=== PATIENT | female | born 1960 | race Two or more races ===

== ENCOUNTER 2022-10-14 08:18 | Inpatient (IN) | payer MEDICAID, OTHER ==
[~2022-10-14] VITALS: Ht 170.2 cm; Wt 71.5 kg
[2022-10-14] MEDS ORDERED: HYDROmorphone HCL 2 MG/ML VL/or syr IV ONE ×2 (09:00→10:45)
[2022-10-14] MEDS ORDERED: ONDANSETRON HCL 4 MG/2 ML VIAL IV ONE (09:00)
[2022-10-14] MEDS ORDERED: SODIUM CHLORIDE 0.9% 1,000 ML IV ONE (09:00)
[2022-10-14 09:18] LABS: Basophils # (auto) 0.1 10 ^3/uL (0-0.2); Basophils % (auto) 0.9 % (0.0-2.0); Eosinophils # (auto) 0.1 10 ^3/uL (0-0.8); Eosinophils % (auto) 0.9 % (0.0-7.0); Hematocrit 41.8 % (36.0-46.0); Lymphocytes # (auto) 1.6 10 ^3/uL (0.4-5.4); Lymphocytes % (auto) 13.8 % (10.0-50.0); Mean Corpuscular Hemoglobin 30.8 pg (28.0-32.0); Mean Corpuscular Hgb Conc. 33.5 g/dL (32.0-36.0); Mean Corpuscular Volume 91.8 fL (80.0-100.0); Monocytes # (auto) 0.6 10 ^3/uL (0-1.3); Monocytes % (auto) 5.1 % (0.0-12.0); Neutrophils # (auto) 9.2 10 ^3/uL (1.6-8.6); Neutrophils % (auto) 79.3 % (37.0-80.0); Nucleated Red Blood Cells % 0.1 %; Red Blood Cells 4.56 10^6/uL (4.0-5.20); Red Cell Distribution Width 13.3 % (11.8-14.3); White Blood Cell 11.6 10^3/uL (4.4-10.8)
[2022-10-14 09:32] LABS: Albumin 3.7 g/dL (3.4-5.0); Potassium 3.9 mmol/L (3.5-5.1)
[2022-10-14 09:36] LABS: BUN/Creatinine Ratio 17.2 (10.0-20.0); Bilirubin, Total 0.4 mg/dL (0.2-1.0); Calcium 9.1 mg/dL (8.5-10.1); Total Protein 7.2 g/dL (6.4-8.2)
[2022-10-14] MEDS ORDERED: IOHEXOL 300 MG/ML 100ML BOTTLE IJ ONE (09:44)
[2022-10-14] MEDS ORDERED: MORPHINE SULFATE INJ 2 MG/ml SYRG IV ONE ×2 (09:45→17:30)
[2022-10-14] MEDS ORDERED: DOCUSATE SOD 100 MG CAP PO PRN (13:00)
[2022-10-14 14:30] LABS: Urine Bacteria NONE SEEN /hpf (None Seen); Urine Blood Negative /uL (Negative); Urine Specific Gravity 1.049 (1.001-1.035); Urine WBC <1 /hpf (0 - 5)
[2022-10-14] MEDS: SODIUM CHLORIDE 0.9% 1,000 ML IV SCH ×2 (14:30→21:20)
[2022-10-14] MEDS ORDERED: DEXTROSE (50%) 50ML SYRG IV PRN (14:30)
[2022-10-14] MEDS: metroNIDAZOLE 500MG/100ML 100 ML IV SCH ×2 (14:31→21:27)
[2022-10-14] MEDS: MORPHINE SULFATE INJ 2 MG/ml SYRG IV PRN ×3 (14:39→23:27)
[2022-10-14 14:41] LABS: Alcohol, Urine < 3.0 mg/dL (0-10); Amphetamine Screen, Urine POSITIVE (NEGATIVE); Barbiturate Scree,Urine NEGATIVE (NEGATIVE); Benzodiazephine Screen, Urine NEGATIVE (NEGATIVE); Cannabinoid Screen, Urine POSITIVE (NEGATIVE)
[2022-10-14 14:49] LABS: Cocaine Screen, Urine NEGATIVE (NEGATIVE); Opiate Scree,Urine NEGATIVE (NEGATIVE); Phencyclidine Screen, Urine NEGATIVE (NEGATIVE)
[2022-10-14] MEDS: hydrALAZINE HCL 20 MG/ML VL IV SCH (16:13)
[2022-10-14] MEDS ORDERED: DICYCLOMINE HCL (10MG/ML) 2 ML AMPULE IM ONE (17:30)
[2022-10-14] MEDS: ACCU-CHEK COMFORT CURVE STRIP VI SCH (17:57)
[2022-10-14] MEDS: InsuLIN REG 1unit/0.01ml Soln (100units/ml) SC SCH (18:03)
[2022-10-14] MEDS ORDERED: KETOROLAC TROMETH 30 MG/ML 1ML VIAL IV ONE (19:00)
[2022-10-14] MEDS: ONDANSETRON HCL 4 MG/2 ML VIAL IV PRN (23:05)
[2022-10-15] MEDS: hydrALAZINE HCL 20 MG/ML VL IV SCH ×3 (00:40→12:07)
[2022-10-15] MEDS: ACCU-CHEK COMFORT CURVE STRIP VI SCH ×5 (00:47→23:15)
[2022-10-15] MEDS: InsuLIN REG 1unit/0.01ml Soln (100units/ml) SC SCH ×5 (00:49→23:16)
[2022-10-15 06:00] LABS: Potassium 3.5 mmol/L (3.5-5.1)
[2022-10-15 06:07] LABS: Basophils # (auto) 0 10 ^3/uL (0-0.2); Basophils % (auto) 0.1 % (0.0-2.0); Eosinophils # (auto) 0 10 ^3/uL (0-0.8); Hematocrit 45.7 % (36.0-46.0); Hemoglobin 15.5 g/dL (12.2-16.2); Lymphocytes # (auto) 0.4 10 ^3/uL (0.4-5.4); Mean Corpuscular Hgb Conc. 33.8 g/dL (32.0-36.0); Mean Corpuscular Volume 91.5 fL (80.0-100.0); Monocytes % (auto) 7.2 % (0.0-12.0); Neutrophils # (auto) 12.8 10 ^3/uL (1.6-8.6); Neutrophils % (auto) 89.7 % (37.0-80.0); Red Blood Cells 4.99 10^6/uL (4.0-5.20); Red Cell Distribution Width 13.4 % (11.8-14.3); White Blood Cell 14.3 10^3/uL (4.4-10.8)
[2022-10-15] MEDS: metroNIDAZOLE 500MG/100ML 100 ML IV SCH ×3 (06:18→22:45)
[2022-10-15] MEDS: SODIUM CHLORIDE 0.9% 1,000 ML IV SCH ×3 (06:30→18:30)
[2022-10-15] MEDS: MORPHINE SULFATE INJ 2 MG/ml SYRG IV PRN ×2 (07:05→20:04)
[2022-10-15 07:50] LABS: Total Protein 7.1 g/dL (6.4-8.2)
[2022-10-15 08:27] LABS: Albumin 3.4 g/dL (3.4-5.0); BUN/Creatinine Ratio 18.8 (10.0-20.0); Calcium 9.2 mg/dL (8.5-10.1)
[2022-10-15] MEDS: cefTRIAXone 1GM/50ML D5W 50 ML IV SCH (09:02)
[2022-10-15] MEDS ORDERED: LORazepam 2MG/ML-1ML VIAL IM PRN (10:00)
[2022-10-15] MEDS: ENOXAPARIN SOD 40 MG/0.4 ML SYRINGE SC SCH (10:00)
[2022-10-15] MEDS: PANTOPRAZOLE 40 MG/10 ML VIAL INJ IV SCH (10:57)
[2022-10-15] MEDS: hydrALAZINE HCL 20 MG/ML VL IV PRN ×2 (18:55→23:17)
[2022-10-15] MEDS: ONDANSETRON HCL 4 MG/2 ML VIAL IV PRN (20:02)
[2022-10-15 22:00] VITALS: BP 166/74
[2022-10-16 05:00] VITALS: BP 147/93
[2022-10-16 05:42] LABS: Basophils # (auto) 0 10 ^3/uL (0-0.2); Basophils % (auto) 0.1 % (0.0-2.0); Eosinophils # (auto) 0 10 ^3/uL (0-0.8); Hemoglobin 14.2 g/dL (12.2-16.2); Lymphocytes # (auto) 0.5 10 ^3/uL (0.4-5.4); Lymphocytes % (auto) 3.6 % (10.0-50.0); Mean Corpuscular Hemoglobin 30.7 pg (28.0-32.0); Mean Corpuscular Hgb Conc. 33.9 g/dL (32.0-36.0); Mean Corpuscular Volume 90.6 fL (80.0-100.0); Monocytes # (auto) 1.8 10 ^3/uL (0-1.3); Monocytes % (auto) 12.7 % (0.0-12.0); Neutrophils % (auto) 83.6 % (37.0-80.0); Red Blood Cells 4.64 10^6/uL (4.0-5.20); Red Cell Distribution Width 13.6 % (11.8-14.3); White Blood Cell 14.3 10^3/uL (4.4-10.8)
[2022-10-16 05:56] LABS: Potassium 3.5 mmol/L (3.5-5.1)
[2022-10-16 06:07] LABS: Albumin 2.9 g/dL (3.4-5.0); BUN/Creatinine Ratio 22.6 (10.0-20.0); Bilirubin, Total 0.8 mg/dL (0.2-1.0); Calcium 9.2 mg/dL (8.5-10.1); Total Protein 6.4 g/dL (6.4-8.2)
[2022-10-16] MEDS: ACCU-CHEK COMFORT CURVE STRIP VI SCH ×3 (06:07→17:23)
[2022-10-16] MEDS: metroNIDAZOLE 500MG/100ML 100 ML IV SCH ×3 (06:08→22:45)
[2022-10-16] MEDS: InsuLIN REG 1unit/0.01ml Soln (100units/ml) SC SCH ×3 (06:19→18:00)
[2022-10-16] MEDS: SODIUM CHLORIDE 0.9% 1,000 ML IV SCH ×3 (06:37→23:20)
[2022-10-16 09:00] VITALS: BP 157/100
[2022-10-16] MEDS: cefTRIAXone 1GM/50ML D5W 50 ML IV SCH (10:30)
[2022-10-16] MEDS: ENOXAPARIN SOD 40 MG/0.4 ML SYRINGE SC SCH (10:30)
[2022-10-16] MEDS: PANTOPRAZOLE 40 MG/10 ML VIAL INJ IV SCH (10:30)
[2022-10-16 13:22] VITALS: BP 167/99
[2022-10-16] MEDS: hydrALAZINE HCL 20 MG/ML VL IV PRN (15:06)
[2022-10-16] MEDS: MORPHINE SULFATE INJ 2 MG/ml SYRG IV PRN (15:06)
[2022-10-16] MEDS: ONDANSETRON HCL 4 MG/2 ML VIAL IV PRN (15:07)
[2022-10-16 17:15] VITALS: BP 152/98
[2022-10-16 22:00] VITALS: BP 147/76
[2022-10-17] MEDS: ACCU-CHEK COMFORT CURVE STRIP VI SCH ×5 (00:12→23:44)
[2022-10-17 05:00] VITALS: BP 159/91
[2022-10-17] MEDS: metroNIDAZOLE 500MG/100ML 100 ML IV SCH ×3 (05:39→22:27)
[2022-10-17] MEDS: hydrALAZINE HCL 20 MG/ML VL IV PRN ×2 (05:40→17:10)
[2022-10-17] MEDS: InsuLIN REG 1unit/0.01ml Soln (100units/ml) SC SCH ×5 (05:41→23:46)
[2022-10-17] MEDS: SODIUM CHLORIDE 0.9% 1,000 ML IV SCH ×2 (07:40→15:45)
[2022-10-17] MEDS: cefTRIAXone 1GM/50ML D5W 50 ML IV SCH (08:50)
[2022-10-17 09:10] VITALS: BP 152/74
[2022-10-17] MEDS: PANTOPRAZOLE 40 MG/10 ML VIAL INJ IV SCH (09:31)
[2022-10-17] MEDS: MORPHINE SULFATE INJ 2 MG/ml SYRG IV PRN (10:20)
[2022-10-17] MEDS: ENOXAPARIN SOD 40 MG/0.4 ML SYRINGE SC SCH (10:20)
[2022-10-17 12:31] VITALS: BP 147/78
[2022-10-17] MEDS ORDERED: GASTROGRAFIN 120 ML SOL ONE (13:31)
[2022-10-17] MEDS: LORazepam 2MG/ML-1ML VIAL IV PRN ×2 (15:43→23:57)
[2022-10-17 16:35] VITALS: BP 177/98
[2022-10-17 22:00] VITALS: BP 149/78
[2022-10-18] MEDS: SODIUM CHLORIDE 0.9% 1,000 ML IV SCH ×3 (00:20→17:46)
[2022-10-18 05:00] VITALS: BP 151/85
[2022-10-18] MEDS: ACCU-CHEK COMFORT CURVE STRIP VI SCH ×4 (05:44→23:45)
[2022-10-18] MEDS: hydrALAZINE HCL 20 MG/ML VL IV PRN ×3 (05:44→22:20)
[2022-10-18] MEDS: metroNIDAZOLE 500MG/100ML 100 ML IV SCH ×3 (05:44→22:10)
[2022-10-18] MEDS: InsuLIN REG 1unit/0.01ml Soln (100units/ml) SC SCH ×4 (05:45→23:46)
[2022-10-18 06:07] LABS: BUN/Creatinine Ratio 32.6 (10.0-20.0); Calcium 8.6 mg/dL (8.5-10.1); Magnesium 2.3 mg/dL (1.6-2.6)
[2022-10-18 06:10] LABS: Hematocrit 40.2 % (36.0-46.0); Hemoglobin 13.4 g/dL (12.2-16.2); Mean Corpuscular Hemoglobin 30.1 pg (28.0-32.0); Mean Corpuscular Hgb Conc. 33.5 g/dL (32.0-36.0); Mean Corpuscular Volume 89.9 fL (80.0-100.0); Red Blood Cells 4.47 10^6/uL (4.0-5.20); Red Cell Distribution Width 13.7 % (11.8-14.3)
[2022-10-18 06:55] LABS: Basophils % (manual) 0 (0.0-2.0); Blast Cells 0; Eosinophils % (manual) 0 (0-7); Metamyelocytes % 0; Myelocytes % 0; Promyelocytes % 0; Reactive Lymphocytes 0
[2022-10-18 08:30] VITALS: BP 164/93
[2022-10-18 09:31] LABS: Band Neutrophils % (manual) 12; Lymphocytes % (manual) 3 (10.0-50.0); Monocytes % (manual) 10 (0-12)
[2022-10-18] MEDS: PANTOPRAZOLE 40 MG/10 ML VIAL INJ IV SCH (09:46)
[2022-10-18] MEDS: ENOXAPARIN SOD 40 MG/0.4 ML SYRINGE SC SCH (09:46)
[2022-10-18] MEDS: cefTRIAXone 1GM/50ML D5W 50 ML IV SCH (09:46)
[2022-10-18 12:55] VITALS: BP 141/76
[2022-10-18 17:00] VITALS: BP 166/94
[2022-10-18 22:00] VITALS: BP 171/91
[2022-10-18] MEDS: LORazepam 2MG/ML-1ML VIAL IV PRN (22:36)
[2022-10-19] MEDS: SODIUM CHLORIDE 0.9% 1,000 ML IV SCH (01:20)
[2022-10-19 05:00] VITALS: BP 150/73
[2022-10-19] MEDS: InsuLIN REG 1unit/0.01ml Soln (100units/ml) SC SCH ×3 (06:00→18:18)
[2022-10-19] MEDS: metroNIDAZOLE 500MG/100ML 100 ML IV SCH ×3 (06:07→22:00)
[2022-10-19 06:15] LABS: Hematocrit 38.7 % (36.0-46.0); Hemoglobin 13.1 g/dL (12.2-16.2); Mean Corpuscular Hemoglobin 30.3 pg (28.0-32.0); Mean Corpuscular Hgb Conc. 33.9 g/dL (32.0-36.0); Mean Corpuscular Volume 89.5 fL (80.0-100.0); Red Blood Cells 4.33 10^6/uL (4.0-5.20); Red Cell Distribution Width 13.8 % (11.8-14.3); White Blood Cell 17.8 10^3/uL (4.4-10.8)
[2022-10-19] MEDS: ACCU-CHEK COMFORT CURVE STRIP VI SCH ×3 (06:17→17:56)
[2022-10-19 06:22] LABS: Basophils % (manual) 0 (0.0-2.0); Blast Cells 0; Eosinophils % (manual) 0 (0-7); Metamyelocytes % 0; Myelocytes % 0; Promyelocytes % 0; Reactive Lymphocytes 0
[2022-10-19 06:33] LABS: BUN/Creatinine Ratio 41.7 (10.0-20.0); Calcium 7.8 mg/dL (8.5-10.1); Magnesium 2.2 mg/dL (1.6-2.6)
[2022-10-19 06:51] LABS: Band Neutrophils % (manual) 22; Lymphocytes % (manual) 7 (10.0-50.0); Monocytes % (manual) 2 (0-12)
[2022-10-19 07:22] LABS: Potassium 2.9 mmol/L (3.5-5.1)
[2022-10-19 08:30] VITALS: BP 144/81
[2022-10-19] MEDS: cefTRIAXone 1GM/50ML D5W 50 ML IV SCH (10:30)
[2022-10-19] MEDS: POTASSIUM CHL 20MEQ/100ML 100 ML IV SCH ×2 (10:30→17:55)
[2022-10-19] MEDS: ENOXAPARIN SOD 40 MG/0.4 ML SYRINGE SC SCH (10:31)
[2022-10-19] MEDS: D5W/SOD CHL 0.45%/KCL 20MEQ 1,000 ML IV SCH ×2 (10:31→19:15)
[2022-10-19] MEDS: PANTOPRAZOLE 40 MG/10 ML VIAL INJ IV SCH (10:31)
[2022-10-19 13:00] VITALS: BP 173/87
[2022-10-19] MEDS ORDERED: FLEET MINERAL OIL ENEMA 133 ML PR ONE (15:00)
[2022-10-19 17:00] VITALS: BP 161/77
[2022-10-19] MEDS: LORazepam 2MG/ML-1ML VIAL IV PRN (17:57)
[2022-10-19 22:00] VITALS: BP 140/63
[2022-10-20] MEDS: ACCU-CHEK COMFORT CURVE STRIP VI SCH ×4 (00:07→18:00)
[2022-10-20] MEDS: InsuLIN REG 1unit/0.01ml Soln (100units/ml) SC SCH ×4 (00:14→18:00)
[2022-10-20] MEDS: MORPHINE SULFATE INJ 2 MG/ml SYRG IV PRN ×3 (03:58→18:20)
[2022-10-20 05:00] VITALS: BP 121/89
[2022-10-20] MEDS: D5W/SOD CHL 0.45%/KCL 20MEQ 1,000 ML IV SCH ×2 (05:15→09:51)
[2022-10-20] MEDS: metroNIDAZOLE 500MG/100ML 100 ML IV SCH ×3 (06:10→21:51)
[2022-10-20] MEDS: ENOXAPARIN SOD 40 MG/0.4 ML SYRINGE SC SCH (08:30)
[2022-10-20 08:46] LABS: INR 1.21 (0.9-1.15); Partial Thromboplastin Time 27.9 sec (24.6-33.4)
[2022-10-20 08:50] VITALS: BP 154/85
[2022-10-20] MEDS: PANTOPRAZOLE 40 MG/10 ML VIAL INJ IV SCH (09:21)
[2022-10-20] MEDS: cefTRIAXone 1GM/50ML D5W 50 ML IV SCH (09:21)
[2022-10-20] MEDS: hydrALAZINE HCL 20 MG/ML VL IV PRN (09:32)
[2022-10-20] MEDS: ONDANSETRON HCL 4 MG/2 ML VIAL IV PRN ×2 (09:33→18:18)
[2022-10-20] MEDS ORDERED: LIDOCAINE 1% HCL (LOCAL ANESTH.) INJ 20ML MDV ONE (10:18)
[2022-10-20] MEDS ORDERED: METOCLOPRAMIDE HCL 5MG/ml INJ 2ml VIAL IV PRN (10:30)
[2022-10-20] MEDS ORDERED: ACCU-CHEK COMFORT CURVE STRIP VI ONE (10:30)
[2022-10-20] MEDS ORDERED: MORPHINE SULFATE INJ 2 MG/ml SYRG IV PRN (10:30)
[2022-10-20] MEDS ORDERED: HYDROmorphone HCL 2 MG/ML VL/or syr IV PRN ×2 (10:30)
[2022-10-20] MEDS ORDERED: SUCCINYLCHOLINE CHLORIDE 20 MG/ML 10ML VIAL IV ONE (10:48)
[2022-10-20] MEDS ORDERED: ROCURONIUM 10MG/ML 10ML VIAL IV ONE (10:48)
[2022-10-20 10:55] LABS: Urine Bacteria NONE SEEN /hpf (None Seen); Urine Blood Negative /uL (Negative); Urine Mucus FEW (None Seen); Urine Specific Gravity 1.021 (1.001-1.035); Urine WBC 1 /hpf (0 - 5)
[2022-10-20] MEDS ORDERED: SODIUM CHLORIDE LOCK 10 ML ONE (11:14)
[2022-10-20] MEDS ORDERED: ONDANSETRON HCL 4 MG/2 ML VIAL ONE (11:14)
[2022-10-20] MEDS ORDERED: DexAMETHasone SOD PHOS 10MG/1ML VIAL INJ ONE (11:14)
[2022-10-20] MEDS ORDERED: GLYCOPYRROLATE 0.2 MG/ML 1ML VIAL ONE (11:14)
[2022-10-20] MEDS ORDERED: NEOSTIGMINE 1 MG/ML INJ (10mg/10ML VIAL) ONE (11:14)
[2022-10-20] MEDS ORDERED: MIDAZOLAM HCL 2MG/2ML 2ml VIAL (1mg/ml) ONE (11:14)
[2022-10-20] MEDS ORDERED: PROPOFOL 10 MG/ML 20 ML IV ONE (11:14)
[2022-10-20] MEDS ORDERED: fentaNYL CITRATE 100 MCG/2 ML VL ONE (11:14)
[2022-10-20] MEDS ORDERED: HYDROmorphone HCL 2 MG/ML VL/or syr ONE ×2 (11:36→13:50)
[2022-10-20] MEDS ORDERED: POTASSIUM CHL 20MEQ/100ML 100 ML IV ONE (12:11)
[2022-10-20] MEDS: POTASSIUM CHL 20MEQ/100ML 100 ML IV SCH (12:23)
[2022-10-20] MEDS ORDERED: POVIDONE IODINE 10 % TOPICAL OINT 30GM TOP ONE (12:58)
[2022-10-20 16:20] VITALS: BP 137/81
[2022-10-20 22:00] VITALS: BP 140/83
[2022-10-21] MEDS: D5W/SOD CHL 0.45%/KCL 20MEQ 1,000 ML IV SCH ×3 (01:15→22:18)
[2022-10-21] MEDS: MORPHINE SULFATE INJ 2 MG/ml SYRG IV PRN ×4 (04:16→17:43)
[2022-10-21 05:00] VITALS: BP 164/80
[2022-10-21] MEDS: hydrALAZINE HCL 20 MG/ML VL IV PRN (05:30)
[2022-10-21] MEDS: metroNIDAZOLE 500MG/100ML 100 ML IV SCH ×3 (05:57→21:59)
[2022-10-21] MEDS: ACCU-CHEK COMFORT CURVE STRIP VI SCH ×5 (05:57→23:52)
[2022-10-21] MEDS: InsuLIN REG 1unit/0.01ml Soln (100units/ml) SC SCH ×5 (06:00→23:51)
[2022-10-21 06:15] LABS: Hematocrit 36.7 % (36.0-46.0); Hemoglobin 12.5 g/dL (12.2-16.2); Mean Corpuscular Hemoglobin 30.3 pg (28.0-32.0); Mean Corpuscular Hgb Conc. 34.1 g/dL (32.0-36.0); Mean Corpuscular Volume 88.8 fL (80.0-100.0); Red Blood Cells 4.13 10^6/uL (4.0-5.20); Red Cell Distribution Width 13.7 % (11.8-14.3); White Blood Cell 22.5 10^3/uL (4.4-10.8)
[2022-10-21 06:37] LABS: Albumin 2.1 g/dL (3.4-5.0); Magnesium 1.8 mg/dL (1.6-2.6); Potassium 4.1 mmol/L (3.5-5.1)
[2022-10-21 06:43] LABS: Bilirubin, Total 0.4 mg/dL (0.2-1.0); Calcium 8.2 mg/dL (8.5-10.1); Total Protein 5.1 g/dL (6.4-8.2)
[2022-10-21 06:46] LABS: Basophils % (manual) 0 (0.0-2.0); Blast Cells 0; Eosinophils % (manual) 0 (0-7); Metamyelocytes % 0; Myelocytes % 0; Promyelocytes % 0; Reactive Lymphocytes 0
[2022-10-21 08:11] LABS: Band Neutrophils % (manual) 6; Lymphocytes % (manual) 12 (10.0-50.0); Monocytes % (manual) 2 (0-12)
[2022-10-21 09:00] VITALS: BP 135/75
[2022-10-21] MEDS: PANTOPRAZOLE 40 MG/10 ML VIAL INJ IV SCH (09:03)
[2022-10-21] MEDS: cefTRIAXone 1GM/50ML D5W 50 ML IV SCH (09:04)
[2022-10-21] MEDS: ENOXAPARIN SOD 40 MG/0.4 ML SYRINGE SC SCH (09:04)
[2022-10-21 13:00] VITALS: BP 144/70
[2022-10-21 16:46] VITALS: BP 147/79
[2022-10-21] MEDS: ONDANSETRON HCL 4 MG/2 ML VIAL IV PRN (17:51)
[2022-10-21 22:00] VITALS: BP 131/68
[2022-10-22] MEDS: MORPHINE SULFATE INJ 2 MG/ml SYRG IV PRN ×3 (01:08→13:54)
[2022-10-22] MEDS: ONDANSETRON HCL 4 MG/2 ML VIAL IV PRN ×3 (01:33→13:54)
[2022-10-22 05:00] VITALS: BP 144/75
[2022-10-22] MEDS: metroNIDAZOLE 500MG/100ML 100 ML IV SCH ×3 (05:35→20:52)
[2022-10-22] MEDS: InsuLIN REG 1unit/0.01ml Soln (100units/ml) SC SCH ×3 (05:35→17:48)
[2022-10-22] MEDS: ACCU-CHEK COMFORT CURVE STRIP VI SCH ×3 (05:37→17:51)
[2022-10-22] MEDS: D5W/SOD CHL 0.45%/KCL 20MEQ 1,000 ML IV SCH ×2 (07:15→17:15)
[2022-10-22 09:00] VITALS: BP 143/80
[2022-10-22] MEDS: cefTRIAXone 1GM/50ML D5W 50 ML IV SCH (09:02)
[2022-10-22] MEDS: ENOXAPARIN SOD 40 MG/0.4 ML SYRINGE SC SCH (09:03)
[2022-10-22] MEDS: PANTOPRAZOLE 40 MG/10 ML VIAL INJ IV SCH (09:03)
[2022-10-22 13:00] VITALS: BP 152/79
[2022-10-22] MEDS ORDERED: MORPHINE SULFATE INJ 2 MG/ml SYRG IV PRN (14:30)
[2022-10-22 16:54] VITALS: BP 153/76
[2022-10-22] MEDS: LORazepam 2MG/ML-1ML VIAL IV PRN (20:42)
[2022-10-22] MEDS: hydrALAZINE HCL 20 MG/ML VL IV PRN (20:42)
[2022-10-22 22:00] VITALS: BP 163/76
[2022-10-23] MEDS: InsuLIN REG 1unit/0.01ml Soln (100units/ml) SC SCH ×5 (00:36→23:55)
[2022-10-23] MEDS: D5W/SOD CHL 0.45%/KCL 20MEQ 1,000 ML IV SCH ×3 (00:44→23:55)
[2022-10-23 05:00] VITALS: BP 150/75
[2022-10-23] MEDS: metroNIDAZOLE 500MG/100ML 100 ML IV SCH ×3 (05:33→22:14)
[2022-10-23] MEDS: ACCU-CHEK COMFORT CURVE STRIP VI SCH ×5 (05:33→23:55)
[2022-10-23 08:22] VITALS: BP 152/86
[2022-10-23] MEDS: cefTRIAXone 1GM/50ML D5W 50 ML IV SCH (09:10)
[2022-10-23] MEDS: ENOXAPARIN SOD 40 MG/0.4 ML SYRINGE SC SCH (09:53)
[2022-10-23] MEDS: PANTOPRAZOLE 40 MG/10 ML VIAL INJ IV SCH (09:53)
[2022-10-23 13:00] VITALS: BP 164/84
[2022-10-23 17:02] VITALS: BP 166/86
[2022-10-23] MEDS: ONDANSETRON HCL 4 MG/2 ML VIAL IV PRN (18:37)
[2022-10-23 22:00] VITALS: BP 133/66
[2022-10-24 05:00] VITALS: BP 150/86
[2022-10-24] MEDS: metroNIDAZOLE 500MG/100ML 100 ML IV SCH ×3 (05:40→22:02)
[2022-10-24] MEDS: ACCU-CHEK COMFORT CURVE STRIP VI SCH ×4 (05:40→23:50)
[2022-10-24] MEDS: InsuLIN REG 1unit/0.01ml Soln (100units/ml) SC SCH ×4 (05:41→23:51)
[2022-10-24 09:00] VITALS: BP 165/91
[2022-10-24] MEDS: cefTRIAXone 1GM/50ML D5W 50 ML IV SCH (09:40)
[2022-10-24] MEDS: PANTOPRAZOLE 40 MG/10 ML VIAL INJ IV SCH (09:41)
[2022-10-24] MEDS: ENOXAPARIN SOD 40 MG/0.4 ML SYRINGE SC SCH (09:41)
[2022-10-24 12:30] VITALS: BP 144/58
[2022-10-24] MEDS: D5W/SOD CHL 0.45%/KCL 20MEQ 1,000 ML IV SCH ×2 (15:52→19:15)
[2022-10-24 17:06] VITALS: BP 158/73
[2022-10-24 22:00] VITALS: BP 157/84
[2022-10-25 05:00] VITALS: BP 164/81
[2022-10-25] MEDS: ACCU-CHEK COMFORT CURVE STRIP VI SCH (05:19)
[2022-10-25] MEDS: D5W/SOD CHL 0.45%/KCL 20MEQ 1,000 ML IV SCH (05:19)
[2022-10-25] MEDS: InsuLIN REG 1unit/0.01ml Soln (100units/ml) SC SCH (05:20)
[2022-10-25] MEDS: hydrALAZINE HCL 20 MG/ML VL IV PRN (05:24)
[2022-10-25] MEDS: metroNIDAZOLE 500MG/100ML 100 ML IV SCH (05:30)
[2022-10-25 09:12] VITALS: BP 145/72
[2022-10-25] MEDS: PANTOPRAZOLE 40 MG/10 ML VIAL INJ IV SCH (09:24)
[2022-10-25] MEDS: cefTRIAXone 1GM/50ML D5W 50 ML IV SCH (09:25)
[2022-10-25] MEDS: ENOXAPARIN SOD 40 MG/0.4 ML SYRINGE SC SCH (09:25)
[2022-10-25 12:54] VITALS: BP 136/85
[2022-10-25 17:11] VITALS: BP 150/83
== END 2022-10-25 17:38 | disposition left against medical advice (07) | DRG 230 ==
LOC: ER 08:18 → EDBD 08:18 → OVERFLOW 13:26 → WEST WING 10-15 21:44 → TELE-WESTW 10-16 15:43
PROVIDERS: ADMIT Nurse Practitioner Family; ATTEND Internal Medicine Geriatric Medicine
PROC: 0DBB0ZZ Excision of Ileum, Open Approach (ICD-10-PCS; principal; 2022-10-20 11:17)
DX: K56.609 Unspecified intestinal obstruction, unspecified as to partial versus complete obstruction (principal); K55.069 Acute infarction of intestine, part and extent unspecified; E87.1 Hypo-osmolality and hyponatremia; D72.829 Elevated white blood cell count, unspecified; E11.65 Type 2 diabetes mellitus with hyperglycemia; F17.200 Nicotine dependence, unspecified, uncomplicated; I10 Essential (primary) hypertension; R32 Unspecified urinary incontinence; Z53.29 Procedure and treatment not carried out because of patient's decision for other reasons
CPT/HCPCS: 36415; 71045; 74018; 74177; 74250; 80048; 80053; 80307; 81001; 82962; 83036; 83690; 83735; 84132; 84702; 85007; 85025; 85027; 85610; 85730; 86850; 86900; 86901; 93005; 96374; 96375; 97110; 97116; 97163; 97530; C9113; G0378; J0330; J0696; J1100; J1815; J2001; J2250; J2405; J2704; J3480; J3490

== ENCOUNTER 2024-10-13 17:52 | Inpatient (IN) | payer SELFPAY ==
[~2024-10-13] VITALS: Ht 165.1 cm; Wt 76.3 kg
--- NOTE | 2024-10-13 18:28 | ED.PDOC ---
GI ASSESSMENT HPI Comments 63 y.o female presents to the ED for a chief complaint of constipation associated with lower abdominal and rectal pain that started 2+ weeks ago. Patient reports using enemas but has only been able to pass small peanut size stool which was a couple days ago. Patient has also used stool softeners but has had no relief. Patient denies any fever, chills, vomiting, diarrhea or substance abuse. Patient has been passing gas and tolerates fluids well but has reduced appetite due to the pain. Patient took one of his spouse's Oxycodone today but had no pain relief. She does admit to tobacco and marijuana use but no street drug. Patient also mentions feeling a lump in her rectal region and states pain worsens when applying pressure such as sitting on her buttocks. Patient denies any rectal bleeding, hematuria, dysuria. Patient does report approximately 5 lb unintentional weight loss in the last one month. No night sweats. No colonoscopy. Chief Complaint: Constipation Time Seen by MD: 18:05 Primary Care Provider: NONE Reviewed Notes: Nurses Notes, Medications, Allergies Allergies: Coded Allergies: Hydromorphone (Verified Allergy, Severe, 10/13/24) Sulfa Antibiotics (Verified Allergy, Severe, 10/13/24) Home Meds Unable to Obtain Active Prescriptions or Reported Meds Information Source: Patient Mode of Arrival: Ambulatory Timing: Weeks (2) Duration: Since onset Quality: Sharp Vomitus: None Stool: Minimal, Empty Severity: Moderate Recent: None Recent Hx of: None Pain Location: Suprapubic Modifying Factors: Nothing Associated sign and symptoms: Nausea, Constipation, Abdominal Pain Past Medical History PAST MEDICAL HISTORY: Denies Surgical History (Other): intestinal [employer] History: No Pertinent [employer] History Family History Family History: Reviewed,noncontributory to illness, No family hx of Cancer, No family hx of DM, No family hx of Heart nirmala, No family hx of HTN, No family hx ofKidney nirmala, No family hx of Liver nirmala, No family hx of Lung nirmala, No family hx of Stroke Social History Smoker: Cigarettes Alcohol: Occasionally Drugs: Denies Drug Use Lives In: Home Constitutional: denies: chills, diaphoresis, fatigue, fever, malaise, sweats, weakness, others EENTM: denies: blurred vision, double vision, ear bleeding, ear discharge, ear drainage, ear pain, ear ringing, eye pain, eye redness, hearing loss, mouth pain, mouth swelling, nasal discharge, nose bleeding, nose congestion, nose pain, photophobia, tearing, throat pain, throat swelling, voice changes, others Respiratory: denies: cough, hemoptysis, orthopnea, SOB at rest, shortness of breath, SOB with excertion, stridor, wheezing, others Cardiovascular: denies: chest pain, dizzy spells, diaphoresis, Dyspnea on exertion, edema, irregular heart beat, left arm pain, lightheadedness, palpitations, PND, syncope, others Gastrointestinal: reports: abdominal pain, constipated, nausea, rectal pain; denies: abdomen distended, blood streaked bowels, diarrhea, dysphagia, difficulty swallowing, hematemesis, melena, poor appetite, poor fluid intake, rectal bleeding, vomiting, others Genitourinary: denies: abnormal vagina bleeding, burning, dyspareunia, dysuria, flank pain, frequency, hematuria, incontinence, pain, , vagina discharge, urgency, others Neurological: denies: dizziness, fainting, headache, left sided numbness, left sided weakness, numbness, paresthesia, pre-existing deficit, right sided numbness, right sided weakness, seizure, speech problems, tingling, tremors, weakness, others Musculoskeletal: denies: back pain, gout, joint pain, joint swelling, muscle pain, muscle stiffness, neck pain, others Integumetry: denies: bruises, change in color, change in hair/nails, dryness, laceration, lesions, lumps, rash, wounds, others Allergic/Immunocompromised: denies: Difficulty Healing, Frequent Infections, Hives, Itching, others Hematologic/Lymphatic: denies: anemia, blood clots, easy bleeding, easy bruising, swollen glands, others Endocrine: denies: excessive hunger, excessive sweating, excessive thirst, excessive urination, flushing, intolerance to cold, intolerance to heat, unexplained weight gain, unexplained weight loss, others Psychiatric: denies: anxiety, bipolar disorder, depression, hopeless, panic disorder, schizophrenia, sleepless, suicidal, others All Other Systems: Reviewed and Negative Physical Exam General Appearance: No Apparent Distress, Normal HEENT: Normal ENT Inspection, Pharynx Normal, TMs Normal Neck: Full Range of Motion, Non-Tender, Normal, Normal Inspection Respiratory: Chest Non-Tender, Lungs Clear, No Accessory Muscle Use, No Respiratory Distress, Normal Breath Sounds Cardiovascular: No Edema, No Murmur, No Gallop, Normal Peripheral Pulses, Regular Rate/Rhythm Breast Exam: Deferred Gastrointestinal: No Organomegaly, Non Tender, No Pulsatile Mass, Normal Bowel Sounds, Soft, Other Genitalia: Deferred Pelvic: Deferred Rectal: Deferred Extremities: No calf tenderness, Normal capillary refill, Normal inspection, Normal range of motion, Non-tender, No pedal edema Musculoskeletal : Apperance: Normal Neurologic: Alert, rural health consultant II-XII nml as Tested, No Motor Deficits, Normal Affect, Normal Mood, No Sensory Deficits Cerebellar Function: Normal Reflexes: Normal Skin: Dry, Normal Color, Warm Lymphatic: No Adenopathy Was a procedure done? Was a procedure done?: No GI differential Dx Differential Diagnosis: Constipation, Esophagitis, Gastroenteritis, Inflammatory BD, Ovarian cyst/torsion, Pancreatitis X-Ray, Labs, Meds, VS Vital Signs Date Time Temp Pulse Resp B/P (MAP) Pulse Ox O2 Delivery O2 Flow Rate FiO2 10/13/24 19:33 98.2 87 21 118/71 (87) 98 98.2 10/13/24 19:33 87 21 98 Room Air 10/13/24 18:07 98.1 93 16 169/91 (117) 96 98.1 Lab Test 10/13/24 20:15 10/13/24 18:29 Range/Units Urine Color Yellow Yellow Urine Clarity Clear Clear Urine pH 6.0 5.0-9.0 Urine Specific [place] 1.019 1.001-1.035 Urine Protein Negative Negative Urine Ketones Negative Negative Urine Blood Negative Negative /uL Urine Nitrite Negative Negative Urine Bilirubin Negative Negative Urine Urobilinogen Normal Negative mg/dL Urine Leukocyte Esterase 1+ Negative /uL Urine RBC 3 0 - 4 /hpf Urine Microscopic WBC 7 H 0-5 /HPF Urine Squamous Epithelial Cells Few <5 /hpf Urine Bacteria None seen None Seen /hpf Urine Mucus Few None Seen Urine Glucose 3+ H Normal mg/dL White Blood Count 10.9 H 4.4-10.8 10^3/uL Red Blood Count 5.16 4.0-5.20 10^6/uL Hemoglobin 15.5 12.2-16.2 g/dL Hematocrit 45.4 36.0-46.0 % Mean Corpuscular Volume 88.1 80.0-100.0 fL Mean Corpuscular Hemoglobin 30.0 28.0-32.0 pg Mean Corpuscular Hemoglobin Concent 34.1 32.0-36.0 g/dL Red Cell Distribution Width 14.0 11.8-14.3 % Platelet Count 307 140-450 10^3/uL Mean Platelet Volume 7.3 6.9-10.8 fL Neutrophils (%) (Auto) 72.9 37.0-80.0 % Lymphocytes (%) (Auto) 16.1 10.0-50.0 % Monocytes (%) (Auto) 8.4 0.0-12.0 % Eosinophils (%) (Auto) 1.7 0.0-7.0 % Basophils (%) (Auto) 0.9 0.0-2.0 % Neutrophils # (Auto) 8.0 1.6-8.6 10 ^3/uL Lymphocytes # (Auto) 1.8 0.4-5.4 10 ^3/uL Monocytes # (Auto) 0.9 0-1.3 10 ^3/uL Eosinophils # (Auto) 0.2 0-0.8 10 ^3/uL Basophils # (Auto) 0.1 0-0.2 10 ^3/uL Nucleated Red Blood Cells 0.1 % Sodium Level 137 136-145 mmol/L Potassium Level 3.9 3.5-5.1 mmol/L Chloride Level 105 98-107 mmol/L Carbon Dioxide Level 25 20-31 mmol/L Anion Gap 7 5-15 Blood Urea Nitrogen 5 L 9-23 mg/dL Creatinine 0.75 0.550-1.02 mg/dL Glomerular Filtration Rate Calc 91 >90 mL/min BUN/Creatinine Ratio 6.7 L 10.0-20.0 Serum Glucose 236 H 74-106 mg/dL Hemoglobin A1c Pending Lactic Acid Level 1.8 0.4-2.0 mmol/L Calcium Level 10.1 8.7-10.4 mg/dL Current Medications Medications (Trade) Dose Ordered Sig/Kasia Route Start Time Stop Time Status Last Admin Sodium Chloride 1,000 ml @ 1,000 mls/hr Q1H ONCE IV 10/13/24 18:30 10/13/24 19:29 DC 10/13/24 19:32 Ketorolac Tromethamine (Toradol Injection) 15 mg ONCE ONCE IV 10/13/24 18:30 10/13/24 18:31 DC 10/13/24 19:33 X-Ray, Labs, Meds, VS Comment 63-year-old female here today with complaints of constipation and unintentional weight loss. Vitals signs stable, afebrile. Physical exam as above with evidence of no acute findings. Labs with evidence of minimal leukocytosis and hyperglycemia without evidence of DKA/HHS. CT scan with evidence of mass. I discussed this finding with the patient and informed her that this could resemble anything from the infection to a neoplastic process and patient was understanding of this. Patient to be admitted to the medicine service for further evaluation and consideration of GI consult/colonoscopy.. Patient was started on antibiotics after cultures were obtained as well. Images Reviewed?: Images reviewed and evaluated by me Time of 1ST Reevaluation: 18:28 Reevaluation 1ST: Unchanged Time of 2ND Reevaluation: 22:37 Reevaluation 2ND: Improved Patient Education/Counseling: Diagnosis, Treatment, Prognosis Family Education/Counseling: Diagnosis, Treatment, Prognosis Departure 1 Departure Time of Disposition: 22:37 Impression: Primary Impression: Rectal mass Additional Impression: Constipation Disposition: 02 SHORT TERM HOSPITAL Admit to: Med Surg Condition: Stable e-Prescriptions Unable to Obtain Active Prescriptions or Reported Meds Discharged With: Significant Other Critical Care Note Critical Care Time?: Yes (30 min-critical care time only) Stability Stability form required: No I personally scribed for OLEGARIO GODINEZ MD ([email or web address]) on 10/13/24 at 18:28. Electronically submitted by Karen Tsang ([facility]). OLEGARIO GODINEZ MD Oct 13, 2024 18:28
[2024-10-13 18:43] LABS: Basophils # (auto) 0.1 10 ^3/uL (0-0.2); Basophils % (auto) 0.9 % (0.0-2.0); Eosinophils # (auto) 0.2 10 ^3/uL (0-0.8); Eosinophils % (auto) 1.7 % (0.0-7.0); Hematocrit 45.4 % (36.0-46.0); Hemoglobin 15.5 g/dL (12.2-16.2); Lymphocytes # (auto) 1.8 10 ^3/uL (0.4-5.4); Lymphocytes % (auto) 16.1 % (10.0-50.0); Mean Corpuscular Hgb Conc. 34.1 g/dL (32.0-36.0); Mean Corpuscular Volume 88.1 fL (80.0-100.0); Monocytes # (auto) 0.9 10 ^3/uL (0-1.3); Monocytes % (auto) 8.4 % (0.0-12.0); Neutrophils % (auto) 72.9 % (37.0-80.0); Nucleated Red Blood Cells % 0.1 %; Platelet Count (auto) 307 10^3/uL (140-450); Red Blood Cells 5.16 10^6/uL (4.0-5.20); White Blood Cell 10.9 10^3/uL (4.4-10.8)
[2024-10-13 18:48] LABS: Chloride 105 mmol/L (98-107); Potassium 3.9 mmol/L (3.5-5.1); Sodium 137 mmol/L (136-145)
[2024-10-13 18:49] LABS: Anion Gap 7 (5-15); Calcium 10.1 mg/dL (8.7-10.4); Carbon Dioxide 25 mmol/L (20-31)
[2024-10-13 18:54] LABS: BUN/Creatinine Ratio 6.7 (10.0-20.0)
[2024-10-13 18:59] LABS: Blood Urea Nitrogen 5 mg/dL (9-23); Glucose 236 mg/dL (74-106)
[2024-10-13] MEDS: SODIUM CHLORIDE 0.9% 1,000 ML IV ONE (19:32)
[2024-10-13] MEDS: KETOROLAC TROMETH 30 MG/ML 1ML VIAL IV ONE (19:33)
--- NOTE | 2024-10-13 19:43 | DVH ---
Exam: CT CT AB PEL WO CON-NO ORAL OR IV History: eval for signs of obstruction Comparison Study: 10/14/2022 TECHNIQUE: Multidetector CT of the abdomen and pelvis without IV contrast. Axial, coronal and sagitta l multiplanar reformats were obtained from the axial data set by the technologist. Radiation Dose Information: CT Dose: CTDI volume is 9.43 mGy. Dose-length product is 486.01 mGy*cm FINDINGS: Bibasilar atelectasis. Heart size is within normal limits. Trace pericardial effusion. Liver, spleen, gallbladder, pancreas and adrenal glands unremarkable. Kidneys, ureters and urinary bladder are unremarkable. Uterus and adnexa are unremarkable. Stomach is unremarkable. Small bowel loops unremarkable. Postsurgical changes of the small bowel of t he right lower abdominal quadrant. Appendix is not definitely visualized. Large amount of fecal mater ial within the ascending colon, transverse colon and descending colon. Sigmoid diverticulosis withou t diverticulitis. Distal rectal/ anal soft tissue fullness with limited evaluation given noncontrast imaging. There is distal perirectal edema. No evidence of intraperitoneal free air or free fluid. Prominent left iliac chain lymph node measuring up to 1.9 cm with additional smaller pelvic sidewall lymph nodes. No evidence of aortic aneurysm. [id number] atherosclerotic calcification of the aorta and bila teral iliacs. Questionable prominent pelvic vasculatures. Small fat containing bilateral inguinal hernias. 0.3 cm left inguinal lymph node which may be reactiv e. The soft tissues unremarkable. No destructive osseous lesions noted. Chronic bilateral L5 pars de fect. IMPRESSION: Limited noncontrast imaging. No evidence of bowel obstruction. Inadequately assessed soft tissue fullness of the distal rectum / anal region with mild perirectal fa t stranding concerning for possible mass. Contrast-enhanced imaging is recommended for further evalua tion. Prominent left iliac chain lymph node measuring up to 1.9 cm with additional subcentimeter pelvic justin ewall lymph nodes which may be reactive/neoplastic. Sigmoid diverticulosis without diverticulitis. Additional findings as above.
[2024-10-13 20:25] LABS: Urine Bacteria None Seen /hpf (None Seen)
[2024-10-13 20:30] LABS: Urine Blood Negative /uL (Negative); Urine Clarity Clear (Clear); Urine Color Yellow (Yellow); Urine Mucus FEW (None Seen); Urine Protein, UAD Negative (Negative); Urine Specific Gravity 1.019 (1.001-1.035); Urine Squamous Epithelial Cell FEW /hpf (<5); Urine Urobilinogen Normal (Negative); Urine WBC 7 /HPF (0-5)
[2024-10-13] MEDS ORDERED: ACETAMINOPHEN 325 MG TAB PO PRN (21:45)
[2024-10-13] MEDS ORDERED: POLYETHYLENE GLYCOL 17 GM PWDR PO PRN (21:45)
--- NOTE | 2024-10-13 21:47 | DVHHPRES ---
History of Present Illness Resident Creating Document: RAGHU FUENTES RESIDENT History of Present Illness Patient is a 63-year-old female with past medical history of small bowel obstruction, who comes in due to constipation. According to the patient, she has been experiencing constipation for the last 2 weeks, denies having similar symptoms before. Patient says she has tried taking stool softeners, a senna suppository, Fleet enema all of which did not help, she did have a very small amount of bowel movement after using the Fleet enema. Of note, patient started using her 's OxyContin 5 mg once daily about 1 week ago. Per patient, upon trying manual disimpaction she felt a mass along the left rectal wall, also notes pain in the rectal area. Associated symptoms include nausea and bloating. On review of systems patient is complaining of fatigue, constipation, nausea, urinary frequency, decreased appetite, anxiety and a vaginal discharge. CT abdomen pelvis showed mild perirectal fat stranding concerning for a mass along with prominent left iliac chain lymph nodes measuring 1.9 cm. Patient also notes about 9-10 lb unintentional weight loss in the last 6 months and also notes having seen blood in her stool, both on the tissue paper and in the toilet bowl in the past. Family history pertinent for colon cancer in father diagnosed at the age of 60 years. And rectal exam, patient was noted to have a small, hard and fixed mass at 3 o'clock position, trace blood also returned on the gloved finger. Past Medical History Small-bowel obstruction Past Surgical History Bowel resection, x3 Past Social History Smokin cigarettes per day for the last 20 years Alcohol: Denies Drugs: Uses marijuana heavily daily. Quit using methamphetamine 2 years ago. Review of Systems Constitutional: Yes: Malaise; No: Fever, Chills, Sweats, Weakness, Other Eyes: No: Pain, Vision change, Conjunctivae inflammation, Eyelid inflammation, Other, Redness ENT: No: Ear pain, Ear discharge, Nose pain, Nose discharge, Nose congestion, Mouth pain, Mouth swelling, Throat pain, Throat swelling, Other Respiratory: No: Cough, Dry, Shortness of breath, SOB with excertion, Wheezing, Hemoptysis, Pleuritic Pain, Sputum, Wheezing, Other Cardiovascular: No: Chest Pain, Palpitations, Orthopnea, Paroxysmal Noc. Dyspnea, Edema, Lt Headedness, Other Gastrointestinal: Nausea, Constipation; No: Vomiting, Abdominal Pain, Diarrhea, Melena, Hematochezia, Other Genitourinary: No Dysuria; Frequency; No Incontinence, No Hematuria, No Retention, No Other Musculoskeletal: No: other, neck pain, shoulder pain, arm pain, back pain, hand pain, leg pain, foot pain Skin: No: Rash, Lesions, Jaundice, Bruising, Other Neurological: No: Weakness, Numbness, Incoordination, Change in speech, Confusion, Seizures, Other Allergies: Coded Allergies: Sulfa Antibiotics (Verified Allergy, Severe, 10/13/24) Exam Vital Signs Vital Signs Date Time Temp Pulse Resp B/P (MAP) Pulse Ox O2 Delivery O2 Flow Rate FiO2 10/13/24 19:33 98.2 87 21 118/71 (87) 98 98.2 10/13/24 19:33 Room Air General Appearance: Alert, Oriented X3, Cooperative, No acute distress HEENT: Atraumatic, PERRLA, EOMI, Other (Dry mucous membranes) Respiratory: Clear to auscultation, Normal air movement Cardiovascular: Regular rate, Normal S1, Normal S2 Abdominal: Soft, Other (Decreased bowel sounds. Mild generalized abdominal tenderness to palpation) Extremities: No edema, Normal pulses Skin: No rashes Neuro: Normal gait, Normal speech, Strength at 5/5 X4 ext, Sensation intact Psych/Mental Status: Mental status NL, Mood NL Labs/Xrays Labs Test 10/13/24 20:15 10/13/24 18:29 Range/Units Urine Color Yellow Yellow Urine Clarity Clear Clear Urine pH 6.0 5.0-9.0 Urine Specific [place] 1.019 1.001-1.035 Urine Protein Negative Negative Urine Ketones Negative Negative Urine Blood Negative Negative /uL Urine Nitrite Negative Negative Urine Bilirubin Negative Negative Urine Urobilinogen Normal Negative mg/dL Urine Leukocyte Esterase 1+ Negative /uL Urine RBC 3 0 - 4 /hpf Urine Microscopic WBC 7 H 0-5 /HPF Urine Squamous Epithelial Cells Few <5 /hpf Urine Bacteria None seen None Seen /hpf Urine Mucus Few None Seen Urine Glucose 3+ H Normal mg/dL White Blood Count 10.9 H 4.4-10.8 10^3/uL Red Blood Count 5.16 4.0-5.20 10^6/uL Hemoglobin 15.5 12.2-16.2 g/dL Hematocrit 45.4 36.0-46.0 % Mean Corpuscular Volume 88.1 80.0-100.0 fL Mean Corpuscular Hemoglobin 30.0 28.0-32.0 pg Mean Corpuscular Hemoglobin Concent 34.1 32.0-36.0 g/dL Red Cell Distribution Width 14.0 11.8-14.3 % Platelet Count 307 140-450 10^3/uL Mean Platelet Volume 7.3 6.9-10.8 fL Neutrophils (%) (Auto) 72.9 37.0-80.0 % Lymphocytes (%) (Auto) 16.1 10.0-50.0 % Monocytes (%) (Auto) 8.4 0.0-12.0 % Eosinophils (%) (Auto) 1.7 0.0-7.0 % Basophils (%) (Auto) 0.9 0.0-2.0 % Neutrophils # (Auto) 8.0 1.6-8.6 10 ^3/uL Lymphocytes # (Auto) 1.8 0.4-5.4 10 ^3/uL Monocytes # (Auto) 0.9 0-1.3 10 ^3/uL Eosinophils # (Auto) 0.2 0-0.8 10 ^3/uL Basophils # (Auto) 0.1 0-0.2 10 ^3/uL Nucleated Red Blood Cells 0.1 % Sodium Level 137 136-145 mmol/L Potassium Level 3.9 3.5-5.1 mmol/L Chloride Level 105 98-107 mmol/L Carbon Dioxide Level 25 20-31 mmol/L Anion Gap 7 5-15 Blood Urea Nitrogen 5 L 9-23 mg/dL Creatinine 0.75 0.550-1.02 mg/dL Glomerular Filtration Rate Calc 91 >90 mL/min BUN/Creatinine Ratio 6.7 L 10.0-20.0 Serum Glucose 236 H 74-106 mg/dL Lactic Acid Level 1.8 0.4-2.0 mmol/L Calcium Level 10.1 8.7-10.4 mg/dL Assessment/Plan Assessment/Plan Constipation Perirectal fat stranding concerning for possible rectal mass Sigmoid diverticulosis without diverticulitis - CT abdomen pelvis: Limited noncontrast imaging. No evidence of bowel obstruction. Inadequately assessed soft tissue fullness of the distal rectum / anal region with mild perirectal fat stranding concerning for possible mass. Contrast-enhanced imaging is recommended for further evaluation. Prominent left iliac chain lymph node measuring up to 1.9 cm with additional subcentimeter pelvic sidewall lymph nodes which may be reactive/neoplastic. Sigmoid diverticulosis without diverticulitis. - IV NS 1 L bolus - docusate 100 mg b.i.d. - MiraLax 17 g daily - Fleet enema once - ordered CEA, CA 19 9 - senna tablets - consulted GI Type 2 diabetes, newly diagnosed, Hb A1c 8.8 - mild sliding scale insulin Acute complicated UTI - IV NS 1 L bolus - IV ceftriaxone Marijuana use disorder Nicotine dependence - counseled extensively DVT prophylaxis: SCDs Goals of care: Full code, discussed for >16 minutes on 10/13/2024 Plan discussed with patient Plan discussed with Dr. Alatorre Plan discussed with: Patient, Spouse, Other (RN) My Orders Orders - RAGHU FUENTES RESIDENT Procedure Category Date Status Time Admit ADMIT 10/13/24 Verified 21:42 Allergies LASHAY 10/13/24 Verified 21:42 Code Status CODE 10/13/24 Verified 21:42 Full Liq Diet DIET 10/14/24 Verified Breakfast Acetaminophen Tablet PHA 10/13/24 Verified (Tylenol Tablet) 21:45 Complete Blood Count LAB 10/14/24 Verified 04:00 Comprehensive LAB 10/14/24 Verified Metabolic Panel 04:00 Condition: Unstable LASHAY 10/13/24 Verified 21:42 Notify Md Of Changes LASHAY 10/13/24 Verified From Base 21:42 Stool Occult Blood LAB 10/13/24 Verified 21:42 Polyethylene Glycol PHA 10/13/24 Verified 17g Powder (Miralax 21:45 Polyethylene Glycol PHA 10/13/24 Verified 17g Powder (Miralax 21:45 Docusate Sodium PHA 10/13/24 Verified Capsule (Colace 21:45 Docusate Sodium PHA 10/13/24 Verified Capsule (Colace 22:00 Fleet Enema Adult PHA 10/13/24 Verified 21:45 Date of Service: Oct 13, 2024 Billing Provider: ALINE ALATORRE MD Common Visit Codes: [id number] INP/OBS CARE (HIGH) RAGHU FUENTES Oct 13, 2024 21:47 ALINE ALATORRE MD Oct 14, 2024 11:00
[2024-10-13 21:57] VITALS: PULSE 89; RESP 17; O2SAT 97
[2024-10-13] MEDS: DOCUSATE SOD 100 MG CAP PO SCH (22:00)
[2024-10-13] MEDS: POLYETHYLENE GLYCOL 17 GM PWDR PO ONE (22:16)
[2024-10-13] MEDS: DOCUSATE SOD 100 MG CAP PO ONE (22:17)
[2024-10-13 22:23] VITALS: BP 113/80; PULSE 75; RESP 16; TEMP 97.7; O2SAT 97
[2024-10-13] MEDS: cefTRIAXone 1GM/50ML D5W 50 ML IV ONE (23:05)
[2024-10-13 23:06] LABS: Cannabinoid Screen, Urine Pos (NEGATIVE); Opiate Scree,Urine Neg (NEGATIVE)
[2024-10-13 23:07] LABS: Amphetamine Screen, Urine Neg (NEGATIVE); Barbiturate Scree,Urine Neg (NEGATIVE); Benzodiazephine Screen, Urine Neg (NEGATIVE); Cocaine Screen, Urine Neg (NEGATIVE); Phencyclidine Screen, Urine Neg (NEGATIVE)
[2024-10-13 23:13] LABS: Bilirubin, Direct 0.1 mg/dL (<0.3); Bilirubin, Total 0.5 mg/dL (0.2-1.0); Total Protein 7.7 g/dL (5.7-8.2)
[2024-10-13 23:15] LABS: Albumin 4.9 g/dL (3.2-4.8)
[2024-10-13 23:49] LABS: COVID19 ANTIGEN SOFIA FIA NEGATIVE (NEGATIVE)
[2024-10-13 23:50] LABS: Rapid Influenza A Negative (Negative); Rapid Influenza B Negative (Negative)
[2024-10-13] MEDS: metroNIDAZOLE 500MG/100ML 100 ML IV ONE (23:51)
[2024-10-14] VITALS (7 sets, daily range): BP systolic 114–145; BP diastolic 54–89; PULSE 56–71; RESP 16–18; TEMP 97.4–98.6; O2SAT 92–97
[2024-10-14] MEDS: DEXTROSE (50%) 50ML SYRG IV ONE (00:15)
[2024-10-14] MEDS: ACCU-CHEK COMFORT CURVE STRIP VI ONE (01:06)
[2024-10-14] MEDS: InsuLIN REG 1unit/0.01ml Soln (100units/ml) SC ONE (01:09)
[2024-10-14] MEDS ORDERED: DEXTROSE (50%) 50ML SYRG IV PRN (01:30)
[2024-10-14] MEDS ORDERED: SENNA 8.6 MG TAB PO PRN (01:30)
[2024-10-14] MEDS: ENOXAPARIN SOD 40 MG/0.4 ML SYRINGE SC ONE (01:30)
[2024-10-14] MEDS: FLEET ENEMA(ADULT) 135 ML PR ONE (01:51)
[2024-10-14 05:19] LABS: Basophils # (auto) 0.1 10 ^3/uL (0-0.2); Basophils % (auto) 0.5 % (0.0-2.0); Eosinophils # (auto) 0.4 10 ^3/uL (0-0.8); Hemoglobin 14.5 g/dL (12.2-16.2); Lymphocytes # (auto) 1.8 10 ^3/uL (0.4-5.4); Lymphocytes % (auto) 17.8 % (10.0-50.0); Mean Corpuscular Hemoglobin 30.3 pg (28.0-32.0); Mean Corpuscular Hgb Conc. 34.5 g/dL (32.0-36.0); Mean Corpuscular Volume 87.9 fL (80.0-100.0); Monocytes # (auto) 1.1 10 ^3/uL (0-1.3); Monocytes % (auto) 10.8 % (0.0-12.0); Neutrophils # (auto) 6.7 10 ^3/uL (1.6-8.6); Neutrophils % (auto) 66.9 % (37.0-80.0); Nucleated Red Blood Cells % 0.1 %; Platelet Count (auto) 256 10^3/uL (140-450); Red Blood Cells 4.78 10^6/uL (4.0-5.20); Red Cell Distribution Width 14.2 % (11.8-14.3)
[2024-10-14 05:38] LABS: Alanine Aminotransferase 9 U/L (7-40); Albumin 4.3 g/dL (3.2-4.8); Alkaline Phosphatase 64 U/L (46-116); Anion Gap 6 (5-15); Aspartate Aminotransferase 9 U/L (13-40); BUN/Creatinine Ratio 8.3 (10.0-20.0); Bilirubin, Total 0.5 mg/dL (0.2-1.0); Blood Urea Nitrogen 6 mg/dL (9-23); Calcium 9.5 mg/dL (8.7-10.4); Carbon Dioxide 25 mmol/L (20-31); Chloride 109 mmol/L (98-107); Glucose 148 mg/dL (74-106); Potassium 3.7 mmol/L (3.5-5.1); Sodium 140 mmol/L (136-145); Total Protein 6.7 g/dL (5.7-8.2)
[2024-10-14] MEDS: ACCU-CHEK COMFORT CURVE STRIP VI SCH (06:37)
[2024-10-14] MEDS: InsuLIN REG 1unit/0.01ml Soln (100units/ml) SC SCH (06:38)
[2024-10-14] MEDS: cefTRIAXone 1GM/50ML D5W 50 ML IV SCH (08:55)
[2024-10-14] MEDS: ENOXAPARIN SOD 40 MG/0.4 ML SYRINGE SC SCH (09:49)
[2024-10-14 10:42] LABS: Hepatitis B Surface Antigen Negative (Negative); Hepatitis C Antibody Negative (Negative)
--- NOTE | 2024-10-14 12:48 | DVHCONRES ---
Date Seen: Oct 14, 2024 Resident Creating Document: WINSTON MATTHEWS RESIDENT Referring Physician Dr Micha Perry Resident Reason for Consultation ? Rectal mass History of Present Illness AMADA PINA is a 63 years old female with a PMH of SBO presented to the ED with the chief complaints of constipation for past 2 weeks which is new. Patient tried multiple stool softeners, senna suppositories, Fleet enema ( very small amount of bowel movement after using Fleet enema) but did not help. patient stated that she has been taking her 's OxyContin once daily for 1 week ago. Per patient, upon trying manual disimpaction she felt a mass along the left rectal wall, also notes pain in the rectal area and found blood when wiping with tissue. Associated symptoms include nausea and bloating. PMH: ? SBO PSH: Bowel resection, x3 Family history: Family history pertinent for colon cancer in father diagnosed at the age of 60 years. Social history: Tobacco 5 cigarettes per day for the last 20 years, Denies alcohol, Uses marijuana heavily daily. Quit using methamphetamine 2 years ago. Didnot travel outside [facility], denies [facility] out [facility] and no sick contact Allergies: Sulfa Family History: FH: COPD (chronic obstructive pulmonary disease) G8 MOTHER FH: colon cancer G8 FATHER FH: gastric ulcer G8 MOTHER FH: prostate cancer G8 FATHER Allergies: Coded Allergies: Sulfa Antibiotics (Verified Allergy, Severe, 10/13/24) Home Meds Active Scripts Metformin Hydrochloride (Metformin Hcl Er) 500 Mg Tab, 1 TAB PO BID for 30 Days, #60 TAB 1 Refill Prov:ISMAEL PETER RESDIENT 10/16/24 Pantoprazole Sodium Sesquihydr (Protonix) 40 Mg Tab, 40 MG PO DAILY for 15 Days, #15 TAB Prov:ISMAEL PETER RESDIENT 10/16/24 Docusate Sodium (Colace) 100 Mg Cap, 1 CAP PO BID for 30 Days, #30 CAP Prov:ISMAEL PETER RESDIENT 10/16/24 Hydrocodone-Acetaminophen (Hydrocodone Bitartrate/AC 10-325 mg) 1 Tab Tab, 1 TAB PO TIDP PRN for 7 Days, #21 TAB 0 Refills Prov:SELVIN ANTOINE MD 10/16/24 Lidocaine (Lidocaine Topical Anesthe) 4 % Cre, 4 % EX BIDP PRN, #1 CRE 0 Refills Prov:SELVIN ANTOINE MD 10/16/24 Current Medications Current Medications Medications (Trade) Dose Ordered Sig/Kasia Route PRN Reason Start Time Stop Time Status Last Admin Acetaminophen (Tylenol Tablet) 325 mg Q4HP PRN PO MILD PAIN (1-3 PAIN SCALE) 10/13/24 21:45 Polyethylene Glycol (Miralax 17GM Powder) 17 gm DAILYPRN PRN PO FOR CONSTIPATION 10/13/24 21:45 Docusate Sodium (Colace Capsule) 100 mg BID PO 10/13/24 22:00 10/14/24 09:48 Ceftriaxone Sodium 50 ml @ 100 mls/hr DAILY@09 IV 10/14/24 09:00 10/14/24 08:55 Sennosides (Senokot Tablet) 17.2 mg HS PO 10/14/24 22:00 Sennosides (Senokot Tablet) 17.2 mg QHSP PRN PO FOR CONSTIPATION 10/14/24 01:30 Enoxaparin Sodium (Lovenox) 40 mg DAILY SC 10/14/24 10:00 10/14/24 09:49 Diagnostic Test (Pha) (Accu-Chek Comfort Curve T) 1 strip ACHS 10/14/24 07:00 10/14/24 11:30 Insulin Human Regular (InsuLIN R) ACHS SC 10/14/24 07:00 10/14/24 06:38 Dextrose 50 ml UD PRN IV Blood Sugar LESS THAN 60 10/14/24 01:30 Review of Systems Review of Systems (ROS): Malaise, Nausea, Constipation, urinary frequency, decreased appetite, anxiety and a vaginal discharge. Constitutional: NO Fever, night sweats, weight loss, Lymphadenopathy, ecchymoses, fatigue, skin rash GI: Nausea, vomiting, lower abdominal pain, change in bowel habits or stools, constipation, rectal pain, lower gi bleed Vital Signs Vital Signs Date Time Temp Pulse Resp B/P (MAP) Pulse Ox O2 Delivery O2 Flow Rate FiO2 10/14/24 12:02 97.8 71 18 134/72 (92) 96 97.8 10/13/24 22:23 Room Air* 0 21 Physical Exam Physical exam Vitals: GENERAL APPEARANCE: Well developed, well nourished, alert and cooperative, and appears to be in no acute distress. ABDOMEN: Oral mucosa, Positive bowel sounds. Soft, mildly distended,Decreased bowel sounds. Mild generalized abdominal tenderness to palpation SKIN: Skin normal color, texture and turgor with no lesions or eruptions. Rectal exam : Patient was noted to have a small, hard and fixed mass at 3 o'clock position, trace blood also returned on the gloved finger. Labs/Diagnostic Data Labs Test 10/14/24 11:52 10/14/24 04:28 10/14/24 01:45 10/13/24 22:51 Range/Units POC Glucose 200 H 70-106 mg/dl White Blood Count 10.0 4.4-10.8 10^3/uL Red Blood Count 4.78 4.0-5.20 10^6/uL Hemoglobin 14.5 12.2-16.2 g/dL Hematocrit 42.0 36.0-46.0 % Mean Corpuscular Volume 87.9 80.0-100.0 fL Mean Corpuscular Hemoglobin 30.3 28.0-32.0 pg Mean Corpuscular Hemoglobin Concent 34.5 32.0-36.0 g/dL Red Cell Distribution Width 14.2 11.8-14.3 % Platelet Count 256 140-450 10^3/uL Mean Platelet Volume 7.4 6.9-10.8 fL Neutrophils (%) (Auto) 66.9 37.0-80.0 % Lymphocytes (%) (Auto) 17.8 10.0-50.0 % Monocytes (%) (Auto) 10.8 0.0-12.0 % Eosinophils (%) (Auto) 4.0 0.0-7.0 % Basophils (%) (Auto) 0.5 0.0-2.0 % Neutrophils # (Auto) 6.7 1.6-8.6 10 ^3/uL Lymphocytes # (Auto) 1.8 0.4-5.4 10 ^3/uL Monocytes # (Auto) 1.1 0-1.3 10 ^3/uL Eosinophils # (Auto) 0.4 0-0.8 10 ^3/uL Basophils # (Auto) 0.1 0-0.2 10 ^3/uL Nucleated Red Blood Cells 0.1 % Sodium Level 140 136-145 mmol/L Potassium Level 3.7 3.5-5.1 mmol/L Chloride Level 109 H 98-107 mmol/L Carbon Dioxide Level 25 20-31 mmol/L Anion Gap 6 5-15 Blood Urea Nitrogen 6 L 9-23 mg/dL Creatinine 0.72 0.550-1.02 mg/dL Glomerular Filtration Rate Calc 95 >90 mL/min BUN/Creatinine Ratio 8.3 L 10.0-20.0 Serum Glucose 148 H 74-106 mg/dL Calcium Level 9.5 8.7-10.4 mg/dL Total Bilirubin 0.5 0.2-1.0 mg/dL Aspartate Amino Transferase (AST) 9 L 13-40 U/L Alanine Aminotransferase (ALT) 9 7-40 U/L Alkaline Phosphatase 64 46-116 U/L Total Protein 6.7 5.7-8.2 g/dL Albumin 4.3 3.2-4.8 g/dL Carcinoembryonic Antigen 1.55 <=5.0 ng/mL Stool Occult Blood Positive Negative Stool Occult Blood Sample #3 Negative Hepatitis B Surface Antigen Negative Negative Hepatitis C Antibody Negative Negative Influenza Type A Antigen Negative Negative Influenza Type B Antigen Negative Negative SARS-CoV-2 Antigen (Rapid) Negative NEGATIVE Test 10/13/24 20:15 10/13/24 18:29 Range/Units Urine Color Yellow Yellow Urine Clarity Clear Clear Urine pH 6.0 5.0-9.0 Urine Specific [place] 1.019 1.001-1.035 Urine Protein Negative Negative Urine Ketones Negative Negative Urine Blood Negative Negative /uL Urine Nitrite Negative Negative Urine Bilirubin Negative Negative Urine Urobilinogen Normal Negative mg/dL Urine Leukocyte Esterase 1+ Negative /uL Urine RBC 3 0 - 4 /hpf Urine Microscopic WBC 7 H 0-5 /HPF Urine Squamous Epithelial Cells Few <5 /hpf Urine Bacteria None seen None Seen /hpf Urine Mucus Few None Seen Urine Glucose 3+ H Normal mg/dL Urine Opiates Screen Neg NEGATIVE Urine Fentanyl Screen Neg NEGATIVE Urine Barbiturates Screen Neg NEGATIVE Urine Phencyclidine Screen Neg NEGATIVE Urine Amphetamines Screen Neg NEGATIVE Urine Benzodiazepines Screen Neg NEGATIVE Urine Cocaine Screen Neg NEGATIVE Urine Cannabinoids Screen Pos NEGATIVE Hemoglobin A1c 8.8 H <5.7 % A1C Lactic Acid Level 1.8 0.4-2.0 mmol/L Direct Bilirubin 0.1 <0.3 mg/dL Assessment Assessment/impression: # Constipation # ? Lower GI Bleed( Hematochezia) # Perirectal fat stranding concerning for possible rectal mass # Prominent left iliac chain lymph node measuring up to 1.9 cm with additional subcentimeter pelvic sidewall lymph nodes # Sigmoid diverticulosis without diverticulitis # Family history of colon cancer in father diagnosed at the age of 60 # Type 2 diabetes, newly diagnosed, Hb A1c 8.8 # Acute complicated UTI # Marijuana use disorder # Nicotine dependence Plan/Recommendation Plan: -sigmoidoscopy/colonoscopy in 1 or 2 days - CT abdomen pelvis: Limited noncontrast imaging. No evidence of bowel obstruction. Inadequately assessed soft tissue fullness of the distal rectum / anal region with mild perirectal fat stranding concerning for possible mass. Contrast-enhanced imaging is recommended for further evaluation. Prominent left iliac chain lymph node measuring up to 1.9 cm with additional subcentimeter pelvic sidewall lymph nodes which may be reactive/neoplastic. Sigmoid diverticulosis without diverticulitis. - SOB positive - Rectal exam : Patient was noted to have a small, hard and fixed mass at 3 o'clock position, trace blood also returned on the gloved finger. - IV NS - Docusate 100 mg b.i.d. - Senna tablets - Miralax - clear liquid diet -NPO after midnight - please avoid NSAIDs, alcohol, spicy, highly acidic and caustic diets. Thank you so much for the opportunity to consult on your patient. GI team will follow the patient. Case an action plan discussed with Dr. Dorys Valdes. Complex care planning needed total 49 minutes of detailed discussion. The patient and caregiver team agreed to the plan. Plan discussed with: Patient CASSIEWINSTON RESIDENT Oct 14, 2024 12:48
[2024-10-14] MEDS ORDERED: ONDANSETRON HCL 4 MG/2 ML VIAL IV PRN (15:30)
--- NOTE | 2024-10-14 16:03 | DVHPNRES ---
Progress Note Date Seen: Oct 14, 2024 Resident Creating Document: ISMAEL PETER REJI Has the PT tested + for MRSA If YES, has PT been informed?: No Medical Necessity Reason Pt with a Central, PICC or Fol: No Subjective Review of Systems This is a 63-year-old female with past medical history of partial small-bowel resection (6 inch) due to traumatic rupture came to the hospital due to constipation since 2 weeks. Per patient, normally she has bowel movement every other day but since 2 weeks she has 3 bowel movement, had passed small amount of hard stool with fresh blood on the surface and also had blood on tissue paper. She also complained of lower abdominal pain, radiating to the right flank, 7/8, with no clear exacerbating or relieving factor. She also reports nausea, abdominal fullness, generalized weakness, and unintentional weight loss of 10 lb within last six-month. She denies fever, chest pain, shortness of breaths, bladder habit changes, or any recent unusual food intake. Per patient she has tried multiple stool softeners and Fleet enema which did not help with the constipation. PMHx: Not significant PSHx: partial small-bowel resection (6 inch) due to traumatic rupture, 3 C- section Family history: Significant for father had colon cancer at 60s Social history: Current smoker with 10 pack year history, use marijuana, ex methamphetamine user, currently denies any other drug use. Home medication: Reports of taking husbands oxycodone 5 mg since 1 week, recently has tried multiple stool softener and Fleet enema for constipation Allergic history: Sulfa antibiotics Patient seen and examined at the bedside. Patient is still complaining of abdominal pain and constipation. Patient reports: No new complaints Changes from previous H/P or p: No Changes, Changes Objective vital signs Vital Sign Date Time Temp Pulse Resp B/P (MAP) Pulse Ox O2 Delivery O2 Flow Rate FiO2 10/14/24 12:02 97.8 71 18 134/72 (92) 96 97.8 10/13/24 22:23 Room Air* 0 21 Total Intake and Output 10/13/24 10/13/24 10/14/24 15:00 23:00 07:00 Intake Total 1000 ml Balance 1000 ml medications Current Medications Medications Dose Ordered Sig/Kasia Route Start Time Stop Time Status Last Admin Dose Admin Acetaminophen 325 mg Q4HP PRN PO 4/20/25 21:45 Polyethylene Glycol 17 gm DAILYPRN PRN PO 10/13/24 21:45 Docusate Sodium 100 mg BID PO 10/13/24 22:00 10/14/24 09:48 100 MG Ceftriaxone Sodium 50 ml @ 100 mls/hr DAILY@09 IV 10/14/24 09:00 10/14/24 08:55 100 MLS/HR Sennosides 17.2 mg HS PO 10/14/24 22:00 Sennosides 17.2 mg QHSP PRN PO 10/14/24 01:30 Enoxaparin Sodium 40 mg DAILY SC 10/14/24 10:00 10/14/24 09:49 40 MG Diagnostic Test (Pha) 1 strip ACHS 10/14/24 07:00 10/14/24 11:30 1 STRIP Insulin Human Regular ACHS SC 10/14/24 07:00 10/14/24 06:38 3 UNITS Dextrose 50 ml UD PRN IV 10/14/24 01:30 Examination General Appearance: Alert, Oriented X3, Cooperative, No acute distress HEENT: Atraumatic, PERRLA, EOMI, Mucous membrane moist/pink Respiratory: Clear to auscultation, Normal air movement Cardiovascular: Regular rate, Normal S1, Normal S2, No murmurs, no chest wall tenderness Abdominal: Mild abdominal tenderness Rectal exam: Performed by life educator, and found to have small, hard and fixed mass at 3 o'clock position, and trace blood on finger. Extremities: No clubbing, No cyanosis, No edema, Normal pulses, No tenderness/swelling Skin: No rashes, No breakdown, No significant lesion Neuro: Normal gait, Normal speech, Strength at 5/5 X4 ext, Normal tone, Sensation intact, Cranial nerves 3-12 NL, Reflexes 2+ Psych/Mental Status: Mental status NL, Mood NL laboratory and microbiology Laboratory Tests 10/14/24 04:28 Test 10/14/24 04:28 Range/Units Serum Glucose 148 H 74-106 mg/dL Labs and/or images reviewed: Labs reviewed by me, Image(s) reviewed by me Problem List/Assessment/Plan Problem List/Assessment/Plan GI bleeding, unspecified location Possible colon cancer Constipation Diverticulosis Rectal exam: Performed by life educator, and found to have small, hard and fixed mass at 3 o'clock position, and trace blood on finger. Stool occult blood is positive CT scan shows soft tissue fullness of the distal rectum / anal region with mild perirectal fat stranding concerning for possible mass with Prominent left iliac chain lymph node measuring up to 1.9 cm with additional subcentimeter pelvic sidewall lymph nodes which may be reactive/neoplastic Consulted GI IV fluid Laxative and Fleet enema Pain management Complicated UTI Empiric antibiotic, Rocephin Type 2 diabetes, newly diagnosed Insulin regular mild SS Current smoker Counseled for more than 15 minutes for smoking cessation DIET: Clear liquid diet DVT PROPHYLAXIS: Lovenox GI PROPHYLAXIS:: Protonix BOWEL REGIMEN: Docusate, MiraLax, senna, Fleet enema CODE STATUS: Goal of care discussed for more than 18 minutes, full code DISPOSITION: Med/surge Patient's status and plan discussed with the patient. Case discussed with Dr. Pablo. Plan discussed with: Patient, Other (RN) My Orders My Orders Orders - ISMAEL PETER RESDIGEENA Procedure Category Date Status Time Ondansetron Hcl PHA 10/14/24 Transmitted (Zofran) 15:30 Ondansetron Hcl PHA 10/14/24 Verified (Zofran) 15:30 Pantoprazole PHA 10/14/24 Verified (Protonix) 15:30 Pantoprazole PHA 10/15/24 Verified (Protonix) 10:00 Morphine Sulfate PHA 10/14/24 Verified Injection 15:30 Date of Service: Oct 14, 2024 Billing Provider: SELVIN ANTOINE MD Common Visit Codes: [id number] INP/OBS CARE(HIGH) ISMAEL PETER RESDIENT Oct 14, 2024 16:03 SELVIN ANTOINE MD Oct 16, 2024 00:58
[2024-10-14] MEDS: MORPHINE SULFATE INJ 2 MG/ml SYRG IV ONE (16:14)
[2024-10-14] MEDS: PANTOPRAZOLE 40 MG/10 ML VIAL INJ IV ONE (16:15)
[2024-10-14] MEDS: ONDANSETRON HCL 4 MG/2 ML VIAL IV ONE (16:15)
[2024-10-14] MEDS: GOLYTELY 4L KIT PO ONE ×2 (17:59→18:00)
[2024-10-14] MEDS ORDERED: SENNA 8.6 MG TAB PO SCH (22:00)
[2024-10-15] VITALS (10 sets, daily range): BP systolic 118–149; BP diastolic 58–80; PULSE 63–74; RESP 12–20; TEMP 97.7–98.4; O2SAT 92–99
[2024-10-15] MEDS: MAGNESIUM CITRATE SOLUTION 300 ML BTL PO ONE (05:41)
[2024-10-15] MEDS: GOLYTELY 4L KIT PO ONE (05:42)
[2024-10-15 07:06] LABS: Basophils # (auto) 0 10 ^3/uL (0-0.2); Basophils % (auto) 0.5 % (0.0-2.0); Eosinophils # (auto) 0.2 10 ^3/uL (0-0.8); Eosinophils % (auto) 2.4 % (0.0-7.0); Hematocrit 42.4 % (36.0-46.0); Hemoglobin 14.6 g/dL (12.2-16.2); Lymphocytes # (auto) 1.6 10 ^3/uL (0.4-5.4); Lymphocytes % (auto) 16.6 % (10.0-50.0); Mean Corpuscular Hemoglobin 30.3 pg (28.0-32.0); Mean Corpuscular Hgb Conc. 34.5 g/dL (32.0-36.0); Mean Corpuscular Volume 87.9 fL (80.0-100.0); Monocytes # (auto) 0.9 10 ^3/uL (0-1.3); Monocytes % (auto) 9.4 % (0.0-12.0); Neutrophils # (auto) 6.8 10 ^3/uL (1.6-8.6); Neutrophils % (auto) 71.1 % (37.0-80.0); Platelet Count (auto) 268 10^3/uL (140-450); Red Blood Cells 4.83 10^6/uL (4.0-5.20); Red Cell Distribution Width 13.9 % (11.8-14.3); White Blood Cell 9.6 10^3/uL (4.4-10.8)
[2024-10-15 07:12] LABS: Alanine Aminotransferase 10 U/L (7-40); Albumin 4.4 g/dL (3.2-4.8); Alkaline Phosphatase 66 U/L (46-116); Anion Gap 9 (5-15); BUN/Creatinine Ratio 10.3 (10.0-20.0); Calcium 9.6 mg/dL (8.7-10.4); Carbon Dioxide 23 mmol/L (20-31); Potassium 3.8 mmol/L (3.5-5.1); Sodium 139 mmol/L (136-145)
[2024-10-15 07:13] LABS: Bilirubin, Total 0.7 mg/dL (0.2-1.0)
[2024-10-15 07:15] LABS: Aspartate Aminotransferase 12 U/L (13-40); Blood Urea Nitrogen 7 mg/dL (9-23); Chloride 107 mmol/L (98-107); Glucose 141 mg/dL (74-106)
[2024-10-15] MEDS: PANTOPRAZOLE 40 MG/10 ML VIAL INJ IV SCH (09:27)
[2024-10-15] MEDS ORDERED: SODIUM CHLORIDE LOCK 10 ML ONE (10:49)
[2024-10-15] MEDS ORDERED: LIDOCAINE HCL 2% TOP JELLY 5ML TOP ONE (16:35)
[2024-10-15] MEDS: fentaNYL CITRATE 100 MCG/2 ML VL ONE (16:42)
[2024-10-15] MEDS: diphenhdrAMINE HCL 50 MG/1 ML VL ONE (16:42)
[2024-10-15] MEDS: MIDAZOLAM HCL 5 MG/ML-1ML VIAL ONE (16:42)
--- NOTE | 2024-10-15 17:21 | DVHOP2 ---
Operative Report DATE OF OPERATION: 10/15/24 PROCEDURE: Colonoscopy with hot snare polypectomy; placement of resolution clip for oozing polypectomy site ; and biopsies. PREOPERATIVE INDICATION: The patient is a 63 -year-old female undergoing colonoscopy for change in bowel habits and abnormal finding GI tract imaging suspicious for rectal mass POSTOPERATIVE DIAGNOSES: 1. Patient had a 5 cm partially circumferential rectal mass that started just above the anal verge and extended into the distal rectum. It was friable superficially spreading and ulcerated and multiple biopsies were obtained 2. There was a 2 cm polyp on a short stalk in the distal descending colon that was seen and removed by hot snare polypectomy; there was oozing from this polypectomy site and a resolution clip was placed with control of oozing 3. 2-3 mm benign-appearing ileocecal valve polyp was seen and removed via hot snare polypectomy and the specimen was retrieved with the biopsy forceps 4. Trace to 1+ internal hemorrhoids otherwise normal examination up to the cecum PROCEDURE PERFORMED BY: Hiram Valdes M.D. SCOPE: Olympus videocolonoscope. ASA CLASS: 2 PREOPERATIVE MEDICATIONS: Versed 5 mg, Fentanyl 100 mcg, Benadryl 50 mg PROCEDURE IN DETAIL: After obtaining an informed consent, the patient was placed on left lateral decubitus position. She was then sedated with the above medications. A rectal examination was performed that was normal. The colonoscope was then passed through the anus into the rectosigmoid and through the descending, transverse, and ascending colon up to the cecum with visualization of the appendiceal orifice, base of the cecum and the ileocecal valve. The colonoscope was then withdrawn. On the ileocecal valve there was a 2-3 mm benign-appearing polyp This was removed by hot snare polypectomy and the specimen was retrieved using a biopsy forceps There was a 2 cm polyp on a stalk seen in the distal descending colon at about 45 cm above the anal verge This was removed by hot snare polypectomy and there was minimal oozing from the polypectomy site. A resolution clip was placed over this polypectomy site with control of oozing. Another smaller 3 mm benign-appearing sigmoid polyp was seen and removed by hot snare polypectomy The specimen was cauterized. The patient had a rectal mass starting just above the anal verge extending about 5 cm and was partially circumferential , superficially spreading and ulcerated. Multiple biopsies were obtained. Patient had trace internal hemorrhoids The patient tolerated the procedure well without difficulty. WITHDRAWAL TIME: 15 minutes QUALITY OF THE PREP: [place] Bowel Prep score: 8. COMPLICATIONS : None SPECIMENS: Ileocecal valve polyp Distal Descending/proximal Sigmoid polyp Rectal mass biopsies DISPOSITION: Transfer back to the floor Stable PLAN: 1. Repeat colonoscopy base on biopsy result after completing treatment for her rectal cancer 2. hired worker consult to arrange oncology referral in evaluate her insurance; patient will likely need chemoradiation 3. Resume clear liquid diet advance as tolerated 4. Monitor labs and check CEA level HIRAM VALDES MD Oct 15, 2024 17:20
--- NOTE | 2024-10-15 18:51 | DVHPNRES ---
Progress Note Date Seen: Oct 15, 2024 Resident Creating Document: ISMAEL PETER REJI Has the PT tested + for MRSA If YES, has PT been informed?: No Medical Necessity Reason Pt with a Central, PICC or Fol: No Subjective Review of Systems Patient seen and examined at the bedside. Patient is still complaining of abdominal pain. Patient reports: No new complaints Changes from previous H/P or p: No Changes Objective vital signs Vital Sign Date Time Temp Pulse Resp B/P (MAP) Pulse Ox O2 Delivery O2 Flow Rate FiO2 10/15/24 17:20 72 14 96 Room Air 0 10/15/24 17:20 97.0 119/72 (88) 97.0 10/15/24 17:20 96 Total Intake and Output 10/14/24 10/14/24 10/15/24 15:00 23:00 07:00 Intake Total 150 ml 1600 ml Balance 150 ml 1600 ml medications Current Medications Medications Dose Ordered Sig/Kasia Route Start Time Stop Time Status Last Admin Dose Admin Acetaminophen 325 mg Q4HP PRN PO 10/13/24 21:45 Polyethylene Glycol 17 gm DAILYPRN PRN PO 10/13/24 21:45 Docusate Sodium 100 mg BID PO 10/13/24 22:00 10/15/24 09:26 100 MG Ceftriaxone Sodium 50 ml @ 100 mls/hr DAILY@09 IV 10/14/24 09:00 10/15/24 09:26 100 MLS/HR Sennosides 17.2 mg QHSP PRN PO 10/14/24 01:30 Enoxaparin Sodium 40 mg DAILY SC 10/14/24 10:00 10/14/24 09:49 40 MG Diagnostic Test (Pha) 1 strip ACHS 10/14/24 07:00 10/15/24 17:26 1 STRIP Insulin Human Regular ACHS SC 10/14/24 07:00 10/14/24 06:38 3 UNITS Dextrose 50 ml UD PRN IV 10/14/24 01:30 Ondansetron HCl 4 mg Q4HPRN PRN IV 10/14/24 15:30 Pantoprazole Sodium 40 mg DAILY IV 10/15/24 10:00 10/15/24 09:27 40 MG Examination General Appearance: Alert, Oriented X3, Cooperative, No acute distress HEENT: Atraumatic, PERRLA, EOMI, Mucous membrane moist/pink Respiratory: Clear to auscultation, Normal air movement Cardiovascular: Regular rate, Normal S1, Normal S2, No murmurs, no chest wall tenderness Abdominal: Mild abdominal tenderness Rectal exam: Performed by overnight caregiver, and found to have small, hard and fixed mass at 3 o'clock position, and trace blood on finger. Extremities: No clubbing, No cyanosis, No edema, Normal pulses, No tenderness/swelling Skin: No rashes, No breakdown, No significant lesion Neuro: Normal gait, Normal speech, Strength at 5/5 X4 ext, Normal tone, Sensation intact, Cranial nerves 3-12 NL, Reflexes 2+ Psych/Mental Status: Mental status NL, Mood NL laboratory and microbiology Laboratory Tests 10/15/24 05:18 Test 10/15/24 05:18 Range/Units Serum Glucose 141 H 74-106 mg/dL Microbiology Date/Time Source Procedure Growth Status 10/13/24 22:51 Blood Blood Culture - Preliminary NO GROWTH AFTER 24 HOURS OF INCUBATION. Resulted 10/13/24 20:15 Voided Urine Urine Culture - Preliminary Resulted Labs and/or images reviewed: Labs reviewed by me, Image(s) reviewed by me Problem List/Assessment/Plan Problem List/Assessment/Plan GI bleeding, unspecified location Possible colon cancer Constipation Diverticulosis Rectal exam: Performed by overnight caregiver, and found to have small, hard and fixed mass at 3 o'clock position, and trace blood on finger. Stool occult blood is positive CT scan shows soft tissue fullness of the distal rectum / anal region with mild perirectal fat stranding concerning for possible mass with Prominent left iliac chain lymph node measuring up to 1.9 cm with additional subcentimeter pelvic sidewall lymph nodes which may be reactive/neoplastic Consulted GI, performed colonoscopy, and found to have a 5 cm partially circumferential rectal mass that started just above the anal verge and extended into the distal rectum. It was friable superficially spreading and ulcerated and multiple biopsies were obtained, There was a 2 cm polyp on a short stalk in the distal descending colon that was seen and removed by hot snare polypectomy; there was oozing from this polypectomy site and a resolution clip was placed with control of oozing , 2-3 mm benign-appearing ileocecal valve polyp was seen and removed via hot snare polypectomy and the specimen was retrieved with the biopsy forceps, Trace to 1+ internal hemorrhoids otherwise normal examination up to the cecum IV fluid Laxative and Fleet enema Pain management Complicated UTI Empiric antibiotic, Rocephin Type 2 diabetes, newly diagnosed Insulin regular mild SS Current smoker Counseled for more than 15 minutes for smoking cessation DIET: Clear liquid diet DVT PROPHYLAXIS: Lovenox GI PROPHYLAXIS:: Protonix BOWEL REGIMEN: Docusate, MiraLax, senna, Fleet enema CODE STATUS: Goal of care discussed for more than 18 minutes, full code DISPOSITION: Med/surge Patient's status and plan discussed with the patient. Case discussed with Dr. Pablo. Plan discussed with: Patient, Other (RN) Dietary Evaluation Review Comments: 1) Advance diet as medically feasible 2) Continue current plan of care Expected Outcomes/Goals: To meet >75% estimated needs Fu 2-3 days Date of Service: Oct 15, 2024 Billing Provider: SELVIN ANTOINE MD Common Visit Codes: [id number] INP/OBS CARE(HIGH) ISMAEL PETER RESDIENT Oct 15, 2024 18:51 SELVIN ANTOINE MD Oct 16, 2024 00:41
[2024-10-15] MEDS: HYDROCORTISONE 2.5% TOPICAL CREAM 30GM TUBE PR ONE (19:00)
[2024-10-15] MEDS: HYDROCORTISONE 2.5% TOPICAL CREAM 30GM TUBE PR SCH (22:00)
[2024-10-16 05:00] VITALS: BP 123/62; PULSE 78; RESP 19; TEMP 97.9; O2SAT 97
[2024-10-16 06:13] LABS: Basophils # (auto) 0.1 10 ^3/uL (0-0.2); Basophils % (auto) 0.7 % (0.0-2.0); Eosinophils # (auto) 0.2 10 ^3/uL (0-0.8); Eosinophils % (auto) 1.6 % (0.0-7.0); Hematocrit 41.1 % (36.0-46.0); Hemoglobin 14.2 g/dL (12.2-16.2); Lymphocytes # (auto) 1.4 10 ^3/uL (0.4-5.4); Lymphocytes % (auto) 13.7 % (10.0-50.0); Mean Corpuscular Hgb Conc. 34.5 g/dL (32.0-36.0); Mean Corpuscular Volume 87.1 fL (80.0-100.0); Monocytes # (auto) 0.9 10 ^3/uL (0-1.3); Monocytes % (auto) 8.7 % (0.0-12.0); Neutrophils # (auto) 7.8 10 ^3/uL (1.6-8.6); Neutrophils % (auto) 75.3 % (37.0-80.0); Platelet Count (auto) 250 10^3/uL (140-450); Red Blood Cells 4.72 10^6/uL (4.0-5.20); White Blood Cell 10.3 10^3/uL (4.4-10.8)
[2024-10-16 06:32] LABS: Albumin 3.9 g/dL (3.2-4.8); Alkaline Phosphatase 58 U/L (46-116); Anion Gap 8 (5-15); Aspartate Aminotransferase 14 U/L (13-40); Bilirubin, Total 0.5 mg/dL (0.2-1.0); Calcium 9.3 mg/dL (8.7-10.4); Carbon Dioxide 22 mmol/L (20-31); Potassium 3.7 mmol/L (3.5-5.1); Sodium 140 mmol/L (136-145); Total Protein 6.3 g/dL (5.7-8.2)
[2024-10-16 06:35] LABS: Alanine Aminotransferase < 9 U/L (7-40); BUN/Creatinine Ratio 7.6 (10.0-20.0); Blood Urea Nitrogen < 5 mg/dL (9-23); Chloride 110 mmol/L (98-107); Glucose 116 mg/dL (74-106)
[2024-10-16 08:00] VITALS: PULSE 71; RESP 18; O2SAT 96
[2024-10-16 08:34] VITALS: BP 133/73; PULSE 71; RESP 18; TEMP 98.1; O2SAT 96
[2024-10-16] MEDS ORDERED: HYDR-4798 PO (10:42)
[2024-10-16] MEDS ORDERED: LIDO4CRE EX (10:42)
[2024-10-16] MEDS ORDERED: METF-1145 PO (11:20)
[2024-10-16] MEDS ORDERED: DOCU-94 PO (11:20)
[2024-10-16] MEDS ORDERED: PANT40TA2 PO (11:20)
--- NOTE | 2024-10-16 11:40 | DVHPN2 ---
Progress Note Date Seen: Oct 16, 2024 Resident Creating Document: WINSTON MATTHEWS RESIDENT Has the PT tested + for MRSA If YES, has PT been informed?: No Medical Necessity Reason Pt with a Central, PICC or Fol: No Subjective Review of Systems Patient seen and examined at the bedside. Patient reported no new complaints today. Colonoscopy was done yesterday which showed mass. Social service consult for insurance. Patient reports: No new complaints, Feels better Objective vital signs Vital Sign Date Time Temp Pulse Resp B/P (MAP) Pulse Ox O2 Delivery O2 Flow Rate FiO2 10/16/24 08:34 98.1 71 18 133/73 (93) 96 98.1 10/16/24 08:00 Room Air* 0 21 Total Intake and Output 10/15/24 10/15/24 10/16/24 15:00 23:00 07:00 Intake Total 50 ml 1295 ml 675 ml Balance 50 ml 1295 ml 675 ml medications Current Medications Medications Dose Ordered Sig/Kasia Route Start Time Stop Time Status Last Admin Dose Admin Acetaminophen 325 mg Q4HP PRN PO 10/13/24 21:45 Polyethylene Glycol 17 gm DAILYPRN PRN PO 10/13/24 21:45 Docusate Sodium 100 mg BID PO 10/13/24 22:00 10/16/24 08:56 100 MG Ceftriaxone Sodium 50 ml @ 100 mls/hr DAILY@09 IV 10/14/24 09:00 10/16/24 08:56 100 MLS/HR Sennosides 17.2 mg QHSP PRN PO 10/14/24 01:30 Enoxaparin Sodium 40 mg DAILY SC 10/14/24 10:00 10/16/24 08:56 40 MG Diagnostic Test (Pha) 1 strip ACHS 10/14/24 07:00 10/16/24 11:27 1 STRIP Insulin Human Regular ACHS SC 10/14/24 07:00 10/15/24 22:07 4 UNITS Dextrose 50 ml UD PRN IV 10/14/24 01:30 Ondansetron HCl 4 mg Q4HPRN PRN IV 10/14/24 15:30 Pantoprazole Sodium 40 mg DAILY IV 10/15/24 10:00 10/16/24 08:56 40 MG Hydrocortisone 1 applic BID [place] 10/15/24 22:00 Examination Pt is lying on bed General Appearance: Alert, Oriented X3, Cooperative, Not in acute distress HEENT: Atraumatic, Mucous membranes moist/pink Respiratory: Clear to auscultation, Normal air movement, No added sounds Cardiovascular: Regular rate, Normal S1, Normal S2, No murmurs Abdominal: Active bowel sounds, Soft, no distention, no tenderness Extremities: No edema, Normal pulses, No tenderness/swelling Skin: No Significant rash, except past surgical scars Neuro: Normal speech, sensorimotor deficits none Psych/Mental Status: Mental status NL, Mood NL Nurse was there as sharperone during examination laboratory and microbiology Laboratory Tests 10/16/24 05:18 Test 10/16/24 05:18 Range/Units Serum Glucose 116 H 74-106 mg/dL Microbiology Date/Time Source Procedure Growth Status 10/13/24 22:51 Blood Blood Culture - Preliminary NO GROWTH AFTER 48 HOURS OF INCUBATION. 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 Lower GI Bleed( Hematochezia) # Prominent left iliac chain lymph node measuring up to 1.9 cm with additional subcentimeter pelvic sidewall lymph nodes # Sigmoid diverticulosis without diverticulitis # Family history of colon cancer in father diagnosed at the age of 60 # Type 2 diabetes, newly diagnosed, Hb A1c 8.8 # Acute complicated UTI # Marijuana use disorder # Nicotine dependence Plan: - CT abdomen pelvis: Limited noncontrast imaging. No evidence of bowel obstruction. Inadequately assessed soft tissue fullness of the distal rectum / anal region with mild perirectal fat stranding concerning for possible mass. Contrast-enhanced imaging is recommended for further evaluation. Prominent left iliac chain lymph node measuring up to 1.9 cm with additional subcentimeter pelvic sidewall lymph nodes which may be reactive/neoplastic. Sigmoid diverticulosis without diverticulitis. - SOB positive - Rectal exam : Patient was noted to have a small, hard and fixed mass at 3 o'clock position, trace blood also returned on the gloved finger. - IV NS - Docusate 100 mg b.i.d. - Senna tablets - Miralax Colonoscopy(10/15/24): 1. Patient had a 5 cm partially circumferential rectal mass that started just above the anal verge and extended into the distal rectum. It was friable superficially spreading and ulcerated and multiple biopsies were obtained 2. There was a 2 cm polyp on a short stalk in the distal descending colon that was seen and removed by hot snare polypectomy; there was oozing from this polypectomy site and a resolution clip was placed with control of oozing 3. 2-3 mm benign-appearing ileocecal valve polyp was seen and removed via hot snare polypectomy and the specimen was retrieved with the biopsy forceps 4. Trace to 1+ internal hemorrhoids otherwise normal examination up to the cecum - Repeat colonoscopy base on biopsy result after completing treatment for her rectal cancer - coloring room worker consult to arrange oncology referral in evaluate her insurance; patient will likely need chemoradiation - Resume clear liquid diet advance as tolerated - Monitor labs and check CEA level Biopsy: - Ileocecal valve polyp - Distal Descending/proximal Sigmoid polyp - Rectal mass biopsies -patient may need to follow up in discharge Clinic to discuss biopsy results Thank you so much for the opportunity to consult on your patient. GI team will follow the patient. Case an action plan discussed with Dr. Dorys Valdes. Complex care planning needed total 49 minutes of detailed discussion. The patient and caregiver team agreed to the plan. Plan discussed with: Patient Dietary Evaluation Review Comments: 1) Advance diet as medically feasible 2) Continue current plan of care Expected Outcomes/Goals: To meet >75% estimated needs Fu 2-3 days WINSTON MATTHEWS RESIDENT Oct 16, 2024 11:40
[2024-10-16 13:00] VITALS: BP 142/78; PULSE 66; RESP 19; TEMP 98.1; O2SAT 95
--- NOTE | 2024-10-16 15:35 | DVHDSRES ---
Discharge Summary Date of Admission Resident Creating Document: WINSTON MATTHEWS RESIDENT Oct 13, 2024 at 21:42 Date of Discharge: Oct 16, 2024 Admitting Diagnosis Abdominal pain Labs/Diagnostic Data: Laboratory Results Test 10/16/24 10:57 10/16/24 05:18 10/14/24 04:28 10/14/24 01:45 POC Glucose 171 mg/dl (70-106) White Blood Count 10.3 10^3/uL (4.4-10.8) Red Blood Count 4.72 10^6/uL (4.0-5.20) Hemoglobin 14.2 g/dL (12.2-16.2) Hematocrit 41.1 % (36.0-46.0) Mean Corpuscular Volume 87.1 fL (80.0-100.0) Mean Corpuscular Hemoglobin 30.0 pg (28.0-32.0) Mean Corpuscular Hemoglobin Concent 34.5 g/dL (32.0-36.0) Red Cell Distribution Width 14.0 % (11.8-14.3) Platelet Count 250 10^3/uL (140-450) Mean Platelet Volume 7.6 fL (6.9-10.8) Neutrophils (%) (Auto) 75.3 % (37.0-80.0) Lymphocytes (%) (Auto) 13.7 % (10.0-50.0) Monocytes (%) (Auto) 8.7 % (0.0-12.0) Eosinophils (%) (Auto) 1.6 % (0.0-7.0) Basophils (%) (Auto) 0.7 % (0.0-2.0) Neutrophils # (Auto) 7.8 10 ^3/uL (1.6-8.6) Lymphocytes # (Auto) 1.4 10 ^3/uL (0.4-5.4) Monocytes # (Auto) 0.9 10 ^3/uL (0-1.3) Eosinophils # (Auto) 0.2 10 ^3/uL (0-0.8) Basophils # (Auto) 0.1 10 ^3/uL (0-0.2) Nucleated Red Blood Cells 0.0 % Sodium Level 140 mmol/L (136-145) Potassium Level 3.7 mmol/L (3.5-5.1) Chloride Level 110 mmol/L (98-107) Carbon Dioxide Level 22 mmol/L (20-31) Anion Gap 8 (5-15) Blood Urea Nitrogen < 5 mg/dL (9-23) Creatinine 0.66 mg/dL (0.550-1.02) Glomerular Filtration Rate Calc 100 mL/min (>90) BUN/Creatinine Ratio 7.6 (10.0-20.0) Serum Glucose 116 mg/dL (74-106) Calcium Level 9.3 mg/dL (8.7-10.4) Total Bilirubin 0.5 mg/dL (0.2-1.0) Aspartate Amino Transferase (AST) 14 U/L (13-40) Alanine Aminotransferase (ALT) < 9 U/L (7-40) Alkaline Phosphatase 58 U/L (46-116) Total Protein 6.3 g/dL (5.7-8.2) Albumin 3.9 g/dL (3.2-4.8) Carcinoembryonic Antigen 1.69 ng/mL (<=5.0) CA 19-9 Antigen 8 U/mL (0-35) Stool Occult Blood Positive (Negative) Stool Occult Blood Sample #3 (Negative) Test 10/13/24 22:51 10/13/24 20:15 10/13/24 18:29 Hepatitis B Surface Antigen Negative (Negative) Hepatitis C Antibody Negative (Negative) Influenza Type A Antigen Negative (Negative) Influenza Type B Antigen Negative (Negative) SARS-CoV-2 Antigen (Rapid) Negative (NEGATIVE) Urine Color Yellow (Yellow) Urine Clarity Clear (Clear) Urine pH 6.0 (5.0-9.0) Urine Specific [place] 1.019 (1.001-1.035) Urine Protein Negative (Negative) Urine Ketones Negative (Negative) Urine Blood Negative /uL (Negative) Urine Nitrite Negative (Negative) Urine Bilirubin Negative (Negative) Urine Urobilinogen Normal mg/dL (Negative) Urine Leukocyte Esterase 1+ /uL (Negative) Urine RBC 3 /hpf (0 - 4) Urine Microscopic WBC 7 /HPF (0-5) Urine Squamous Epithelial Cells Few /hpf (<5) Urine Bacteria None seen /hpf (None Seen) Urine Mucus Few (None Seen) Urine Glucose 3+ mg/dL (Normal) Urine Opiates Screen Neg (NEGATIVE) Urine Fentanyl Screen Neg (NEGATIVE) Urine Barbiturates Screen Neg (NEGATIVE) Urine Phencyclidine Screen Neg (NEGATIVE) Urine Amphetamines Screen Neg (NEGATIVE) Urine Benzodiazepines Screen Neg (NEGATIVE) Urine Cocaine Screen Neg (NEGATIVE) Urine Cannabinoids Screen Pos (NEGATIVE) Hemoglobin A1c 8.8 % A1C (<5.7) Lactic Acid Level 1.8 mmol/L (0.4-2.0) Direct Bilirubin 0.1 mg/dL (<0.3) Other Laboratory Tests 10/16/24 05:18 Brief Hx & Hospital Course: This is a 63-year-old female with past medical history of partial small-bowel resection (6 inch) due to traumatic rupture came to the hospital due to constipation since 2 weeks. Per patient, normally she has bowel movement every other day but since 2 weeks she has 3 bowel movement, had passed small amount of hard stool with fresh blood on the surface and also had blood on tissue paper. She also complained of lower abdominal pain, radiating to the right flank, 7/8, with no clear exacerbating or relieving factor. She also reports nausea, abdominal fullness, generalized weakness, and unintentional weight loss of 10 lb within last six-month. She denies fever, chest pain, shortness of breaths, bladder habit changes, or any recent unusual food intake. Per patient she has tried multiple stool softeners and Fleet enema which did not help with the constipation. PMHx: Not significant PSHx: partial small-bowel resection (6 inch) due to traumatic rupture, 3 C- section Family history: Significant for father had colon cancer at 60s Social history: Current smoker with 10 pack year history, use marijuana, ex methamphetamine user, currently denies any other drug use. Home medication: Reports of taking husbands oxycodone 5 mg since 1 week, recently has tried multiple stool softener and Fleet enema for constipation Allergic history: Sulfa antibiotics Hospital course: Patient was admitted at the line of GI bleeding and severe constipation. Performed and found to have small, hard and fixed mass at 3 o'clock position, and trace blood on finger. Patient was given Docusate, MiraLax, senna, Fleet enema, and the patient's daughter have bowel movement. UA showed UTI picture, the patient was given empiric antibiotic Rocephin. Stool occult blood was positive. CT scan shows soft tissue fullness of the distal rectum / anal region with mild perirectal fat stranding concerning for possible mass with Prominent left iliac chain lymph node measuring up to 1.9 cm with additional subcentimeter pelvic sidewall lymph nodes which may be reactive/neoplastic Consulted GI, performed colonoscopy, and found to have a 5 cm partially circumferential rectal mass that started just above the anal verge and extended into the distal rectum. It was friable superficially spreading and ulcerated and multiple biopsies were obtained, There was a 2 cm polyp on a short stalk in the distal descending colon that was seen and removed by hot snare polypectomy; there was oozing from this polypectomy site and a resolution clip was placed with control of oozing , 2-3 mm benign-appearing ileocecal valve polyp was seen and removed via hot snare polypectomy and the specimen was retrieved with the biopsy forceps, Trace to 1+ internal hemorrhoids otherwise normal examination up to the cecum. Polypectomy was performed and biopsy were taken from the lesions. On 10/16/2024, the patient was feeling better since admission. Constipation had resolved, and abdominal pain improved. Discharge plan discussed with the patient the patient discharged home. Discharge plan: Follow up PCP within 1 week of the discharge and referral to Oncology/surgery and GI doctor for follow up of rectal mass Follow up with the discharge Clinic within 1 week after discharge for discussion of biopsy results Colace 100 mg b.i.d. [place] t.i.d. p.r.n. for severe pain Lidocaine gel for rectal area Ibuprofen 400 mg b.i.d. for moderate pain Protonix 40 mg daily Metformin 500 mg b.i.d. for newly diagnosed diabetes type 2 Tylenol for mild pain Operations or Procedures Patient: ALONDRA PINA Acct: [id number] : 1960 Loc: [facility] Age/Sex: 63/F Room: [facility] / Bed: A Attending Phy: ISMAEL PETER Operative Report DATE OF OPERATION: 10/15/24 PROCEDURE: Colonoscopy with hot snare polypectomy; placement of resolution clip for oozing polypectomy site ; and biopsies. PREOPERATIVE INDICATION: The patient is a 63 -year-old female undergoing colonoscopy for change in bowel habits and abnormal finding GI tract imaging suspicious for rectal mass POSTOPERATIVE DIAGNOSES: 1. Patient had a 5 cm partially circumferential rectal mass that started just above the anal verge and extended into the distal rectum. It was friable superficially spreading and ulcerated and multiple biopsies were obtained 2. There was a 2 cm polyp on a short stalk in the distal descending colon that was seen and removed by hot snare polypectomy; there was oozing from this polypectomy site and a resolution clip was placed with control of oozing 3. 2-3 mm benign-appearing ileocecal valve polyp was seen and removed via hot snare polypectomy and the specimen was retrieved with the biopsy forceps 4. Trace to 1+ internal hemorrhoids otherwise normal examination up to the cecum PROCEDURE PERFORMED BY: Hiram Valdes M.D. SCOPE: Olympus videocolonoscope. ASA CLASS: 2 PREOPERATIVE MEDICATIONS: Versed 5 mg, Fentanyl 100 mcg, Benadryl 50 mg PROCEDURE IN DETAIL: After obtaining an informed consent, the patient was placed on left lateral decubitus position. She was then sedated with the above medications. A rectal examination was performed that was normal. The colonoscope was then passed through the anus into the rectosigmoid and through the descending, transverse, and ascending colon up to the cecum with visualization of the appendiceal orifice, base of the cecum and the ileocecal valve. The colonoscope was then withdrawn. On the ileocecal valve there was a 2-3 mm benign-appearing polyp This was removed by hot snare polypectomy and the specimen was retrieved using a biopsy forceps There was a 2 cm polyp on a stalk seen in the distal descending colon at about 45 cm above the anal verge This was removed by hot snare polypectomy and there was minimal oozing from the polypectomy site. A resolution clip was placed over this polypectomy site with control of oozing. Another smaller 3 mm benign-appearing sigmoid polyp was seen and removed by hot snare polypectomy The specimen was cauterized. The patient had a rectal mass starting just above the anal verge extending about 5 cm and was partially circumferential , superficially spreading and ulcerated. Multiple biopsies were obtained. Patient had trace internal hemorrhoids The patient tolerated the procedure well without difficulty. WITHDRAWAL TIME: 15 minutes QUALITY OF THE PREP: [place] Bowel Prep score: 8. COMPLICATIONS : None SPECIMENS: Ileocecal valve polyp Distal Descending/proximal Sigmoid polyp Rectal mass biopsies DISPOSITION: Transfer back to the floor Stable PLAN: 1. Repeat colonoscopy base on biopsy result after completing treatment for her rectal cancer 2. 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 Resume clear liquid diet advance as tolerated 4. 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 [place] t.i.d. p.r.n. for severe pain Lidocaine gel for rectal area Ibuprofen 400 mg b.i.d. for moderate pain Protonix 40 mg daily Metformin 500 mg b.i.d. for newly diagnosed diabetes type 2 Tylenol for mild pain Discharge Statement: "Patient was advised to return to the ER or call 911 if any headaches, dizziness, shortness of breath, chest pain, abdominal pain, bleeding, fevers, or worsening of medical condition. Patient was counseled about treatment plan, medications, possible side effects, patientverbalized understanding. All questions were answered to the best of my ability. This discharge took greater then 30 minutes in planning, reviewing documentation, counseling the patient, and discussing with other team members." ASSESSMENT ASSESSMENT Assessment Constipation due to rectal mass possible cancer ISMAEL PETER Oct 16, 2024 15:35
== END 2024-10-16 16:00 | disposition home or self-care (01) | DRG 393 ==
LOC: ER 18:02 → OVERFLOW 21:42 → WEST WING 10-14 17:40
PROVIDERS: ADMIT Student in an Organized Health Care Education/Training Program
PROC: 0DBN8ZZ Excision of Sigmoid Colon, Via Natural or Artificial Opening Endoscopic (ICD-10-PCS; 2024-10-15)
PROC: 0DBH8ZZ Excision of Cecum, Via Natural or Artificial Opening Endoscopic (ICD-10-PCS; 2024-10-15)
PROC: 0W3P8ZZ Control Bleeding in Gastrointestinal Tract, Via Natural or Artificial Opening Endoscopic (ICD-10-PCS; 2024-10-15)
PROC: 0DBM8ZZ Excision of Descending Colon, Via Natural or Artificial Opening Endoscopic (ICD-10-PCS; principal; 2024-10-15 16:40)
DX: K64.8 Other hemorrhoids (principal); K57.31 Diverticulosis of large intestine without perforation or abscess with bleeding; N39.0 Urinary tract infection, site not specified; C20 Malignant neoplasm of rectum; K63.5 Polyp of colon; K59.00 Constipation, unspecified; E11.9 Type 2 diabetes mellitus without complications; F17.210 Nicotine dependence, cigarettes, uncomplicated; Z20.822 Contact with and (suspected) exposure to COVID-19; Z88.6 Allergy status to analgesic agent; Z88.2 Allergy status to sulfonamides
CPT/HCPCS: 36415; 45382; 45384; 74176; 80048; 80053; 80076; 80307; 81001; 82270; 82378; 82962; 83036; 83605; 85025; 86301; 86803; 87040; 87086; 87340; 87426; 87804; 96361; 96374; 99291; G0378; J1815; J1885; J2250; J2405; J2470; J3490